=== PATIENT | male | born 1965 | race Two or more races ===

== ENCOUNTER 2018-12-12 06:42 | Day surgery (SDC) | payer MEDICAID ==
[2018-12-08 12:29] LABS: BASOPHILS % (AUTO) 0.5 % (0-1); EOSINOPHILS # (AUTO) 0.2 X10'3 (0-0.9); EOSINOPHILS % (AUTO) 2.8 % (0-6); LYMPHOCYTES # (AUTO) 2.5 X10'3 (1.1-4.8); LYMPHOCYTES % (AUTO) 29.2 % (21-51); MEAN CORPUSCULAR HEMOGLOBIN 27.7 PG (27.0-31.0); MEAN CORPUSCULAR VOLUME 83.9 FL (78-98); MONOCYTES # (AUTO) 0.7 X10'3 (0-0.9); MONOCYTES % (AUTO) 7.8 % (2-12); NEUTROPHILS # (AUTO) 5.1 X10'3 (1.8-7.7); NEUTROPHILS % (AUTO) 59.7 % (42-75); PRE OP HEMATOCRIT 38.8 % (42.0-52.0); PRE OP HEMOGLOBIN 12.8 g/dL (14.0-17.9); PRE OP PLATELET COUNT 265 X10'3 (140-440); RED BLOOD COUNT 4.63 X10'6 (4.70-6.10); RED CELL DISTRIBUTION WIDTH 14.1 % (11.5-14.5)
[2018-12-08 12:43] LABS: ALBUMIN 4.1 G/DL (3.4-5.0); ALBUMIN/GLOBULIN RATIO 1.1 (1.1-1.5); ALKALINE PHOSPHATASE 76 IU/L (46-116); BLOOD UREA NITROGEN 17 MG/DL (7-18); CALCIUM 9.2 MG/DL (8.5-10.1); CHLORIDE 104 MMOL/L (99-107); PRE OP ALT 23 U/L (30-65); PRE OP ANION GAP 10 (8-16); PRE OP AST 13 U/L (10-37); PRE OP BILIRUB, TOTAL 0.6 MG/DL (0.0-1.0); PRE OP GLUCOSE 80 MG/DL (70-104); PRE OP POTASSIUM 4.1 MMOL/L (3.4-5.1); PRE OP SODIUM 142 MMOL/L (135-145); TOTAL CARBON DIOXIDE 28.1 MMOL/L (24-32); TOTAL PROTEIN 7.8 G/DL (6.4-8.2); eGFR 78 ML/MIN
[~2018-12-12] VITALS: Ht 170.2 cm; Wt 89.7 kg
[~2018-12-12 06:42] MED LIST: ESOM40CA49 PO; LISI-600 PO; OXYC-658 PO; TRAZ150T78 PO; cefazolin/dext.iso 2gm/100 ML IV ONE; famotidine 20mg tablet PO ONE; normal saline 1000ml 1,000 ML IV SCH; ringers solution, lacted 1,000 ML IV SCH
[2018-12-12 06:50] VITALS: BP 139/84
[2018-12-12] MEDS ORDERED: ringers solution, lacted 1,000 ML IV SCH (07:33)
[2018-12-12] MEDS ORDERED: hydrALAZINE 20mg/ml inj. IV PRN (07:35)
[2018-12-12] MEDS ORDERED: ondansetron/PF 4mg/2ml inj IV PRN (07:35)
[2018-12-12] MEDS ORDERED: fentaNYL/PF 50MCG/1 ML 2ML syringe IV PRN ×2 (07:35)
[2018-12-12] MEDS ORDERED: morphine 4 MG/ML inj SYRINge IV PRN ×2 (07:35)
[2018-12-12] MEDS ORDERED: labetalol 20mg/4ml (5mg/ml) syringe IV PRN (07:35)
[2018-12-12] MEDS ORDERED: LIDOcaine 0.5% (5mg/ml) 50ml vial ONE (07:36)
[2018-12-12] MEDS ORDERED: BUPIVAcaine/PF 2.5mg/ml (0.25%) 10ml vial ONE (10:21)
[2018-12-12] MEDS ORDERED: midazolam 2 mg/2 ml injection ONE (10:30)
[2018-12-12] MEDS ORDERED: fentaNYL/PF 50MCG/1 ML 2ML syringe ONE (10:30)
[2018-12-12 11:04] VITALS: BP 123/55
--- NOTE | 2018-12-12 11:04 | NUR ---
Received from OR via , accompanied by Anesthesiologist BELLA and report given by Anesthesiolgist. AWAKE VS WNL, NO CO PAIN DSG DI, FINGERS WARM PINK GOOD CAP REFILL. ELEVATED WITH ICE TO WRIST AREA.
[2018-12-12 11:14] VITALS: BP 126/61
[2018-12-12 11:24] VITALS: BP 128/59
[2018-12-12 11:34] VITALS: BP 124/63
[2018-12-12 11:44] VITALS: BP 129/64
--- NOTE | 2018-12-12 11:54 | NUR ---
AWAKE VS WNL, NO CO PAIN TOLERATES LIQUIDS, DSG DI, FINGERS WARM PINK GOOD CAP REFILL. DISCH INSTR GIVEN TO PT AND UNDERSTOOD. ICE TO WRIST HOME WITH .
== END 2018-12-12 11:54 | disposition home or self-care (01) ==
LOC: PAS 06:42
PROVIDERS: ATTEND Orthopaedic Surgery Hand Surgery
DX: G56.02 Carpal tunnel syndrome, left upper limb (principal); D23.62 Other benign neoplasm of skin of left upper limb, including shoulder; I10 Essential (primary) hypertension; K21.9 Gastro-esophageal reflux disease without esophagitis; G89.29 Other chronic pain; Z87.891 Personal history of nicotine dependence; Z79.899 Other long term (current) drug therapy; Z98.890 Other specified postprocedural states
CPT/HCPCS: 26115; 36415; 64721; 80053; 85025; 93005; J2001; J2250; J3010; J3490; J7030; A4215; J7120

== ENCOUNTER 2020-08-08 08:01 | Inpatient (IN) | payer MEDICAID ==
[~2020-08-08] VITALS: Ht 170.2 cm; Wt 88.6 kg
[~2020-08-08 08:01] MED LIST changes: -LISI-600 PO; +LISI20TA28 PO; -cefazolin/dext.iso 2gm/100 ML IV ONE; -famotidine 20mg tablet PO ONE; -normal saline 1000ml 1,000 ML IV SCH; -ringers solution, lacted 1,000 ML IV SCH
[2020-08-08 08:51] LABS: CLARITY,URINE CLOUDY (Clear); COLOR,URINE YELLOW (Yellow); GLUCOSE, URINE NEGATIVE (Neg); KETONES,URINE TRACE mg/dl (Neg); LEUKOCYTE ESTERASE ,URINE NEGATIVE (Neg); NITRITES, URINE NEGATIVE (Neg); OCCULT BLOOD,URINE MODERATE (Neg); PH,URINE 7.5 (4.8-8.0); PROTEIN,URINE >=300 mg/dl (Neg)
[2020-08-08 08:52] LABS: UA COLLECTION TYPE CLN CATCH MIDSTREAM
[2020-08-08 08:59] LABS: MUCUS STRANDS MODERATE /LPF (Neg); SQUAMOUS EPITHELIAL CELL,UR FEW /LPF (FEW)
[2020-08-08 09:00] LABS: BACTERIA,URINE 1+ /HPF (Neg); CELLULAR CAST 0-4 /LPF (NEGATIVE)
[2020-08-08] MEDS ORDERED: pantoprazole 40 MG vial IV ONE ×2 (09:00→12:15)
[2020-08-08] MEDS ORDERED: normal saline 1000ml 1,000 ML IV ONE (09:00)
[2020-08-08] MEDS ORDERED: famotidine/PF 10 mg/ml inj IV ONE (09:00)
[2020-08-08 09:07] LABS: BASOPHILS % (AUTO) 0.1 % (0-1); EOSINOPHILS % (AUTO) 0 % (0-6); HEMATOCRIT 40.6 % (42.0-52.0); HEMOGLOBIN 13.6 g/dl (14.0-17.9); LYMPHOCYTES # (AUTO) 0.5 X10'3 (1.1-4.8); LYMPHOCYTES % (AUTO) 3.1 % (21-51); MEAN CORPUSCULAR HEMOGLOBIN 30.5 PG (27.0-31.0); MEAN CORPUSCULAR HGB CONC 33.6 g/dL (33.0-36.5); MEAN CORPUSCULAR VOLUME 90.7 FL (78-98); MEAN PLATELET VOLUME 8.7 FL (7.4-10.4); MONOCYTES # (AUTO) 0.9 X10'3 (0-0.9); MONOCYTES % (AUTO) 5.8 % (2-12); NEUTROPHILS # (AUTO) 14.1 X10'3 (1.8-7.7); PLATELET COUNT 289 X10'3 (140-440); RED BLOOD COUNT 4.48 X10'6 (4.70-6.10); RED CELL DISTRIBUTION WIDTH 15.2 % (11.5-14.5); WHITE BLOOD COUNT 15.5 X10'3 (4.5-11.0)
[2020-08-08] MEDS ORDERED: morphine 4 MG/ML inj SYRINge IV ONE (09:15)
[2020-08-08] MEDS ORDERED: ondansetron/PF 4mg/2ml inj IV ONE (09:15)
[2020-08-08] MEDS ORDERED: normal saline 1000ML IV soln IV ONE (09:20)
[2020-08-08] MEDS ORDERED: iohexol 300mg/ml 100ml inj. ONE (10:15)
[2020-08-08 10:17] LABS: ALANINE AMINOTRANSFERASE 130 U/L (12-78); ALBUMIN 4.1 G/DL (3.4-5.0); ALKALINE PHOSPHATASE 93 IU/L (46-116); ANION GAP 11 (8-16); ASPARTATE AMINO TRANSFERASE 85 U/L (10-37); BILIRUBIN,TOTAL 1.3 MG/DL (0.1-1.0); BLOOD UREA NITROGEN 23 MG/DL (7-18); BUN/CREATININE RATIO 19.5 (5.4-32.0); CALCIUM 9.1 MG/DL (8.5-10.1); CHLORIDE 97 MMOL/L (99-107); CREATININE 1.18 MG/DL (0.60-1.10); GLUCOSE 152 MG/DL (70-104); LIPASE 3587 U/L (73-393); POTASSIUM 3.5 MMOL/L (3.5-5.1); SODIUM 138 MMOL/L (135-145); TOTAL CARBON DIOXIDE 29.9 MMOL/L (24-32); TOTAL PROTEIN 8.2 G/DL (6.4-8.2); eGFR 64 ML/MIN
[2020-08-08] MEDS ORDERED: CefTRIAXone 2gm/D5W 50ml BAG 50 ML IV ONE (10:30)
[2020-08-08 10:35] LABS: PARTIAL THROMBOPLASTIN TIME 29 SECONDS (22-32)
--- NOTE | 2020-08-08 10:58 | NUR ---
[place] informed of no pain relief with 4 mg dose of morphine, last etoh 3 days ago
[2020-08-08] MEDS ORDERED: HYDROmorphone 1 mg/ml syringe IV ONE (11:00)
[2020-08-08 11:42] LABS: TOTAL CELLS COUNTED 100
[2020-08-08 11:43] LABS: PLATELET ESTIMATE NORMAL
[2020-08-08] MEDS ORDERED: metoclopramide 5 mg/ml inj IV PRN (12:45)
[2020-08-08] MEDS ORDERED: magnesium 4gm in 100ml NS 100 ML IV PRN (12:45)
[2020-08-08] MEDS ORDERED: magnesium hydroxide 30ml (MOM) UD suspension PO PRN (12:45)
[2020-08-08] MEDS ORDERED: HYDROmorphone inj. 0.5 MG/0.5 ML DISP.SYRIN IV PRN (12:45)
[2020-08-08] MEDS ORDERED: ondansetron/PF 4mg/2ml inj IV PRN (12:45)
[2020-08-08] MEDS ORDERED: acetaminophen 325mg tablet PO PRN ×2 (12:45)
[2020-08-08] MEDS ORDERED: magnesium Cl slow-release 64mg tablet PO PRN (12:45)
[2020-08-08] MEDS ORDERED: HYDROcodone/acetaminophen 5mg/325mg tablet PO PRN (12:45)
[2020-08-08] MEDS ORDERED: potassium Cl 20 mEq SR tablet PO PRN ×2 (12:45)
[2020-08-08] MEDS ORDERED: HYDROcodone/acetaminophen 10/325mg tab PO PRN (12:45)
[2020-08-08] MEDS ORDERED: magnesium 2GM in 50ml NS 50 ML IV PRN (12:45)
[2020-08-08] MEDS ORDERED: haloperidol lactate 5mg/ml inj IM PRN (12:45)
[2020-08-08] MEDS ORDERED: haloperidol 5mg tablet PO PRN (12:45)
[2020-08-08] MEDS ORDERED: bisacodyl 10mg suppository rectal RC PRN (12:45)
[2020-08-08] MEDS: normal saline 1000ml 1,000 ML IV SCH (12:45)
[2020-08-08] MEDS ORDERED: thiamine inj. 100 MG in normal saline 100ml IV soln 100 ML IV ONE (12:45)
[2020-08-08] MEDS ORDERED: potassium Cl 40MEQ/1/2NS 520ml 520 ML IV PRN ×2 (12:45)
[2020-08-08] MEDS ORDERED: mag hydrox/Alum hydrox/simeth 30ml oral suspension PO PRN (12:45)
[2020-08-08] MEDS ORDERED: ESOM20CA38 PO (13:23)
[2020-08-08] MEDS ORDERED: TRAZ-256 PO (13:23)
[2020-08-08] MEDS ORDERED: LATA2.5D14 RIGHTEYE (13:23)
[2020-08-08] MEDS ORDERED: LISI40TA13 PO (13:23)
[2020-08-08] MEDS ORDERED: OXYC10TA47 PO (13:23)
[2020-08-08] MEDS ORDERED: GABA300C PO (13:23)
[2020-08-08] MEDS ORDERED: AMLO5TAB16 PO (13:23)
[2020-08-08] MEDS ORDERED: SIMV-42 PO (13:23)
[2020-08-08] MEDS: pantoprazole 40MG/NS 100ML BAG 100 ML IV SCH ×3 (13:30→21:00)
[2020-08-08] MEDS: LORazepam 1 MG tablet PO PRN ×2 (13:31→16:07)
[2020-08-08 14:30] LABS: HEMATOCRIT 39.7 % (42.0-52.0); HEMOGLOBIN 13.1 g/dl (14.0-17.9); MEAN CORPUSCULAR HEMOGLOBIN 30.3 PG (27.0-31.0); MEAN CORPUSCULAR HGB CONC 32.9 g/dL (33.0-36.5); MEAN CORPUSCULAR VOLUME 92.1 FL (78-98); MEAN PLATELET VOLUME 8.8 FL (7.4-10.4); PLATELET COUNT 247 X10'3 (140-440); RED BLOOD COUNT 4.31 X10'6 (4.70-6.10); RED CELL DISTRIBUTION WIDTH 15.1 % (11.5-14.5)
--- NOTE | 2020-08-08 14:52 | NUR ---
PHONE REPORT TO AMY FORTE PCU. PATIENT TO GO TO ROOM 3029Q ON MONITOR WITH RN TAMMI WOMACK RN AWARE IV THIAMINE HAS NOT ARRIVED TO BE ADMINISTERED DESPITE MULTIPLE PHONE CALLS TO PHARMACY.
--- NOTE | 2020-08-08 15:50 | NUR ---
CALLED PHARMACY TO LET THEM KNOW I NEEDED A PROTONICS DRIP WAS TOLD IT WAS ON ITS WAY.
[2020-08-08] MEDS ORDERED: pantoprazole 40MG/NS 100ML BAG 100 ML IV SCH (16:00)
[2020-08-08 16:35] VITALS: BP 171/115
--- NOTE | 2020-08-08 17:00 | NUR ---
CALLED PHARMACY AGAIN ABOUT PROTONIX DRIP. WAS TOLD IT WOULD BE UP SHORTLY
--- NOTE | 2020-08-08 17:55 | NUR ---
CALLED ABOUT THE PROTONIX DRIP AGAIN. I EXPRESSED THAT I HAVE BEEN WAITING FOR OVER TWO HOURS FOR THE PROTONIX DRIP AND STILL HAVE NOT RECEIVED IT. WAS TOLD AGAIN THAT IT WOULD BE UP SOON. NOTIFIED MY CHARGE NURSE NEFTALI REYES
[2020-08-08 18:00] VITALS: BP 153/93
[2020-08-08] MEDS ORDERED: gabapentin 300mg capsule PO PRN (18:15)
--- NOTE | 2020-08-08 18:28 | NUR ---
Patient in room PCU 3025. I have received report from AMY Gold and had the opportunity to ask questions and assume patient care.
[2020-08-08] MEDS: LORazepam 2 mg/ml vial IV PRN (19:33)
[2020-08-08] MEDS: K and/or MAG REPLACEMENT MC SCH (19:37)
[2020-08-08] MEDS: traZODone 50mg tablet PO SCH (20:14)
[2020-08-08] MEDS: lisinopril 20mg tablet PO SCH (20:26)
[2020-08-08 20:36] LABS: HEMATOCRIT 38.3 % (42.0-52.0); HEMOGLOBIN 12.8 g/dl (14.0-17.9); MEAN CORPUSCULAR HEMOGLOBIN 30.5 PG (27.0-31.0); MEAN CORPUSCULAR HGB CONC 33.4 g/dL (33.0-36.5); MEAN CORPUSCULAR VOLUME 91.3 FL (78-98); MEAN PLATELET VOLUME 8.7 FL (7.4-10.4); PLATELET COUNT 240 X10'3 (140-440); RED BLOOD COUNT 4.19 X10'6 (4.70-6.10); RED CELL DISTRIBUTION WIDTH 14.9 % (11.5-14.5); WHITE BLOOD COUNT 14.1 X10'3 (4.5-11.0)
[2020-08-08] MEDS ORDERED: temazepam 15mg capsule PO PRN (21:00)
[2020-08-08] MEDS: latanoprost 0.005% 2.5ml ophthalmic drops RIGHTEYE SCH (21:00)
[2020-08-08 22:00] VITALS: BP 153/102
[2020-08-09] MEDS: pantoprazole 40MG/NS 100ML BAG 100 ML IV SCH ×5 (00:33→20:37)
[2020-08-09 02:00] VITALS: BP 151/102
[2020-08-09] MEDS: LORazepam 2 mg/ml vial IV PRN ×2 (02:32→13:52)
[2020-08-09 03:50] LABS: ANION GAP 10 (8-16); BLOOD UREA NITROGEN 16 MG/DL (7-18); CALCIUM 8.6 MG/DL (8.5-10.1); CHLORIDE 103 MMOL/L (99-107); CHOL/HDL RATIO 2.7 (0.00-4.99); CHOLESTEROL 166 MG/DL (0-200); GLUCOSE 111 MG/DL (70-104); HDL CHOLESTEROL 62 MG/DL (35-60); LDL CHOLESTEROL 76 MG/DL (50-100); POTASSIUM 3.6 MMOL/L (3.5-5.1); SODIUM 138 MMOL/L (135-145); TOTAL CARBON DIOXIDE 25.2 MMOL/L (24-32); TRIGLYCERIDES 88 MG/DL (20-135); eGFR > 90 ML/MIN
[2020-08-09 04:25] LABS: HEMATOCRIT 38.1 % (42.0-52.0); HEMOGLOBIN 12.6 g/dl (14.0-17.9); MEAN CORPUSCULAR HEMOGLOBIN 30.4 PG (27.0-31.0); MEAN CORPUSCULAR VOLUME 91.9 FL (78-98); MEAN PLATELET VOLUME 8.7 FL (7.4-10.4); PLATELET COUNT 216 X10'3 (140-440); RED BLOOD COUNT 4.14 X10'6 (4.70-6.10); RED CELL DISTRIBUTION WIDTH 15.3 % (11.5-14.5); WHITE BLOOD COUNT 13.8 X10'3 (4.5-11.0)
--- NOTE | 2020-08-09 06:14 | NUR ---
Problems reprioritized. Patient report given,AMY Whaley questions answered & plan of care reviewed with .
--- NOTE | 2020-08-09 06:16 | NUR ---
[place]rientee documentation: I have reviewed and agree with all medications administered, interventions, assessments performed and documented by Ed REYES .
--- NOTE | 2020-08-09 06:20 | NUR ---
Patient in room PCU 3025. I have received report from Ed REYES and Anabel REYES and had the opportunity to ask questions and assume patient care.
[2020-08-09 07:00] VITALS: BP 161/106
[2020-08-09] MEDS: K and/or MAG REPLACEMENT MC SCH ×2 (08:00→20:00)
[2020-08-09] MEDS: amLODIPine 5mg tablet PO SCH (08:16)
[2020-08-09] MEDS: thiamine 100mg tablet PO SCH (08:16)
[2020-08-09] MEDS: multivitamins, therapeutics tablet PO SCH (08:16)
[2020-08-09] MEDS: oxyCODONE IR 5mg (immed. release) tablet PO PRN ×2 (08:17→18:48)
[2020-08-09] MEDS: folic acid 1mg tablet PO SCH (08:17)
[2020-08-09] MEDS ORDERED: CefTRIAXone 2gm/D5W 50ml BAG 50 ML IV ONE (10:10)
[2020-08-09 10:28] LABS: HEMATOCRIT 37.8 % (42.0-52.0); HEMOGLOBIN 12.5 g/dl (14.0-17.9); MEAN CORPUSCULAR HEMOGLOBIN 30.6 PG (27.0-31.0); MEAN CORPUSCULAR HGB CONC 33.1 g/dL (33.0-36.5); MEAN CORPUSCULAR VOLUME 92.4 FL (78-98); MEAN PLATELET VOLUME 9.1 FL (7.4-10.4); PLATELET COUNT 234 X10'3 (140-440); RED BLOOD COUNT 4.09 X10'6 (4.70-6.10); RED CELL DISTRIBUTION WIDTH 15.5 % (11.5-14.5); WHITE BLOOD COUNT 14.2 X10'3 (4.5-11.0)
[2020-08-09 11:00] VITALS: BP 161/102
[2020-08-09 14:38] LABS: HEMATOCRIT 36.7 % (42.0-52.0); HEMOGLOBIN 12.2 g/dl (14.0-17.9); MEAN CORPUSCULAR HEMOGLOBIN 30.5 PG (27.0-31.0); MEAN CORPUSCULAR HGB CONC 33.1 g/dL (33.0-36.5); MEAN CORPUSCULAR VOLUME 92.2 FL (78-98); MEAN PLATELET VOLUME 9.1 FL (7.4-10.4); PLATELET COUNT 216 X10'3 (140-440); RED BLOOD COUNT 3.98 X10'6 (4.70-6.10); RED CELL DISTRIBUTION WIDTH 15.4 % (11.5-14.5); WHITE BLOOD COUNT 13.2 X10'3 (4.5-11.0)
[2020-08-09 15:00] VITALS: BP 158/102
--- NOTE | 2020-08-09 18:27 | NUR ---
Problems reprioritized. Patient report given, questions answered & plan of care reviewed with Selin REYES.
[2020-08-09 20:07] LABS: HEMATOCRIT 37.3 % (42.0-52.0); HEMOGLOBIN 12.3 g/dl (14.0-17.9); MEAN CORPUSCULAR HEMOGLOBIN 30.4 PG (27.0-31.0); MEAN PLATELET VOLUME 8.7 FL (7.4-10.4); PLATELET COUNT 227 X10'3 (140-440); RED BLOOD COUNT 4.06 X10'6 (4.70-6.10); RED CELL DISTRIBUTION WIDTH 15.1 % (11.5-14.5); WHITE BLOOD COUNT 12.9 X10'3 (4.5-11.0)
[2020-08-09] MEDS: lisinopril 20mg tablet PO SCH (20:36)
[2020-08-09] MEDS: traZODone 50mg tablet PO SCH (20:36)
[2020-08-09] MEDS: latanoprost 0.005% 2.5ml ophthalmic drops RIGHTEYE SCH (20:36)
[2020-08-09 22:00] VITALS: BP 165/105
[2020-08-10 02:00] VITALS: BP 158/107
[2020-08-10] MEDS: pantoprazole 40MG/NS 100ML BAG 100 ML IV SCH ×5 (02:02→20:07)
[2020-08-10] MEDS: oxyCODONE IR 5mg (immed. release) tablet PO PRN ×3 (02:42→20:37)
[2020-08-10 06:00] VITALS: BP 165/107
--- NOTE | 2020-08-10 06:20 | NUR ---
Patient in room PCU 3025. I have received report from Selin REYES and had the opportunity to ask questions and assume patient care.
--- NOTE | 2020-08-10 06:59 | NUR ---
Patient in room PCU 3025. I have received report from Selin REYES and had the opportunity to ask questions and assume patient care.
[2020-08-10 07:29] LABS: HEMATOCRIT 34.8 % (42.0-52.0); HEMOGLOBIN 11.4 g/dl (14.0-17.9); MEAN CORPUSCULAR HEMOGLOBIN 30.3 PG (27.0-31.0); MEAN CORPUSCULAR HGB CONC 32.8 g/dL (33.0-36.5); MEAN CORPUSCULAR VOLUME 92.1 FL (78-98); MEAN PLATELET VOLUME 9.1 FL (7.4-10.4); PLATELET COUNT 232 X10'3 (140-440); RED BLOOD COUNT 3.77 X10'6 (4.70-6.10); WHITE BLOOD COUNT 13.6 X10'3 (4.5-11.0)
[2020-08-10 07:39] LABS: ALBUMIN 2.5 G/DL (3.4-5.0); ANION GAP 13 (8-16); BLOOD UREA NITROGEN 20 MG/DL (7-18); CALCIUM 8.6 MG/DL (8.5-10.1); CHLORIDE 103 MMOL/L (99-107); CREATININE 0.74 MG/DL (0.60-1.10); GLUCOSE 91 MG/DL (70-104); MAGNESIUM 2.2 MG/DL (1.5-2.4); POTASSIUM 3.5 MMOL/L (3.5-5.1); SODIUM 138 MMOL/L (135-145); TOTAL CARBON DIOXIDE 22.5 MMOL/L (24-32); eGFR > 90 ML/MIN
[2020-08-10] MEDS: K and/or MAG REPLACEMENT MC SCH ×2 (08:00→20:00)
[2020-08-10] MEDS: multivitamins, therapeutics tablet PO SCH (08:04)
[2020-08-10] MEDS: LORazepam 1 MG tablet PO PRN ×3 (08:04→22:18)
[2020-08-10] MEDS: folic acid 1mg tablet PO SCH (08:05)
[2020-08-10] MEDS: amLODIPine 5mg tablet PO SCH (08:05)
[2020-08-10] MEDS: thiamine 100mg tablet PO SCH (08:05)
[2020-08-10 08:17] LABS: HEMATOCRIT 35.5 % (42.0-52.0); HEMOGLOBIN 11.9 g/dl (14.0-17.9); MEAN CORPUSCULAR HEMOGLOBIN 30.9 PG (27.0-31.0); MEAN CORPUSCULAR HGB CONC 33.5 g/dL (33.0-36.5); MEAN CORPUSCULAR VOLUME 92.2 FL (78-98); MEAN PLATELET VOLUME 8.7 FL (7.4-10.4); PLATELET COUNT 234 X10'3 (140-440); RED BLOOD COUNT 3.85 X10'6 (4.70-6.10); WHITE BLOOD COUNT 12.4 X10'3 (4.5-11.0)
[2020-08-10] MEDS ORDERED: amLODIPine 5mg tablet PO ONE (09:55)
[2020-08-10 09:57] LABS: ALANINE AMINOTRANSFERASE 82 U/L (12-78); ALBUMIN/GLOBULIN RATIO 0.6 (1.1-1.5); ALKALINE PHOSPHATASE 108 IU/L (46-116); ASPARTATE AMINO TRANSFERASE 62 U/L (10-37); BILIRUBIN,DIRECT 0.3 MG/DL (0-0.3); BILIRUBIN,TOTAL 0.9 MG/DL (0.1-1.0); TOTAL PROTEIN 6.6 G/DL (6.4-8.2)
[2020-08-10] MEDS: hyDRALAzine 10mg tablet PO PRN ×2 (10:43→17:16)
[2020-08-10 11:00] VITALS: BP 179/110
[2020-08-10] MEDS: normal saline 1000ml 1,000 ML IV SCH (12:45)
[2020-08-10 16:01] LABS: LIPASE 207 U/L (73-393)
[2020-08-10 16:33] VITALS: BP 160/109
--- NOTE | 2020-08-10 16:43 | NUR ---
Contacted Hillary in Pharm for dose delivery of rocephin. awaiting delivery, will admin on arrival
[2020-08-10] MEDS: CefTRIAXone 2gm/D5W 50ml BAG 50 ML IV SCH (17:12)
[2020-08-10 18:00] VITALS: BP 165/109
--- NOTE | 2020-08-10 18:01 | NUR ---
[place]ee documentation: I have reviewed and agree with all interventions, assessments performed and documented by Marcela REYES. [place] Medication Administration: For this medication-pass time frame, all medication were reviewed, dispensed, administered and documented per hospital policy by MARCELA REYES.
--- NOTE | 2020-08-10 18:28 | NUR ---
Problems reprioritized. Patient report given, questions answered & plan of care reviewed with adry oro.
--- NOTE | 2020-08-10 18:30 | NUR ---
Problems reprioritized. Patient report given, questions answered & plan of care reviewed with Selin REYES.
[2020-08-10] MEDS: lisinopril 20mg tablet PO SCH (20:06)
[2020-08-10] MEDS: traZODone 50mg tablet PO SCH (20:06)
[2020-08-10] MEDS: latanoprost 0.005% 2.5ml ophthalmic drops RIGHTEYE SCH (20:35)
[2020-08-10 22:00] VITALS: BP 157/99
[2020-08-11 02:33] VITALS: BP 166/102
[2020-08-11] MEDS: pantoprazole 40MG/NS 100ML BAG 100 ML IV SCH ×2 (03:14→08:44)
[2020-08-11] MEDS: hyDRALAzine 10mg tablet PO PRN (04:52)
[2020-08-11] MEDS: LORazepam 1 MG tablet PO PRN ×2 (04:52→08:39)
[2020-08-11 05:01] VITALS: BP 166/109
[2020-08-11 06:58] LABS: ALBUMIN 2.5 G/DL (3.4-5.0); ANION GAP 12 (8-16); BLOOD UREA NITROGEN 13 MG/DL (7-18); BUN/CREATININE RATIO 18.8 (5.4-32.0); CALCIUM 8.7 MG/DL (8.5-10.1); CHLORIDE 103 MMOL/L (99-107); CREATININE 0.69 MG/DL (0.60-1.10); GLUCOSE 117 MG/DL (70-104); POTASSIUM 3.2 MMOL/L (3.5-5.1); SODIUM 138 MMOL/L (135-145); eGFR > 90 ML/MIN
[2020-08-11 07:00] VITALS: BP 165/101
[2020-08-11] MEDS: K and/or MAG REPLACEMENT MC SCH (08:00)
[2020-08-11] MEDS ORDERED: amLODIPine 5mg tablet PO SCH (08:00)
[2020-08-11] MEDS: CefTRIAXone 2gm/D5W 50ml BAG 50 ML IV SCH (08:37)
[2020-08-11] MEDS: multivitamins, therapeutics tablet PO SCH (08:38)
[2020-08-11] MEDS: thiamine 100mg tablet PO SCH (08:38)
[2020-08-11] MEDS: folic acid 1mg tablet PO SCH (08:38)
[2020-08-11] MEDS: oxyCODONE IR 5mg (immed. release) tablet PO PRN (08:39)
[2020-08-11 10:03] LABS: BASOPHILS % (AUTO) 0.3 % (0-1); EOSINOPHILS # (AUTO) 0.1 X10'3 (0-0.9); EOSINOPHILS % (AUTO) 0.9 % (0-6); HEMATOCRIT 37.3 % (42.0-52.0); HEMOGLOBIN 12.5 g/dl (14.0-17.9); LYMPHOCYTES # (AUTO) 0.9 X10'3 (1.1-4.8); LYMPHOCYTES % (AUTO) 7.3 % (21-51); MEAN CORPUSCULAR HEMOGLOBIN 30.5 PG (27.0-31.0); MEAN CORPUSCULAR HGB CONC 33.5 g/dL (33.0-36.5); MEAN CORPUSCULAR VOLUME 91.1 FL (78-98); MEAN PLATELET VOLUME 8.3 FL (7.4-10.4); MONOCYTES # (AUTO) 1.2 X10'3 (0-0.9); MONOCYTES % (AUTO) 9.9 % (2-12); NEUTROPHILS # (AUTO) 9.6 X10'3 (1.8-7.7); NEUTROPHILS % (AUTO) 81.6 % (42-75); PLATELET COUNT 306 X10'3 (140-440); RED BLOOD COUNT 4.09 X10'6 (4.70-6.10); RED CELL DISTRIBUTION WIDTH 14.6 % (11.5-14.5); WHITE BLOOD COUNT 11.8 X10'3 (4.5-11.0)
[2020-08-11] MEDS ORDERED: folic acid tablet PO (10:03)
[2020-08-11] MEDS ORDERED: ATEN-27 PO (10:03)
[2020-08-11] MEDS ORDERED: ESOM20CA38 PO (10:03)
[2020-08-11] MEDS ORDERED: MULT-25 PO (10:03)
[2020-08-11] MEDS ORDERED: thiamine tablet PO (10:03)
[2020-08-11] MEDS ORDERED: NOR5T PO (10:03)
[2020-08-11 11:00] VITALS: BP 145/101
[2020-08-11 11:45] LABS: OCCULT BLOOD STOOL POSITIVE (Neg)
--- NOTE | 2020-08-11 12:21 | NUR ---
RXs called into [facility] pharmacy at [phone]
[2020-08-11] MEDS ORDERED: CIPR-259 PO (12:36)
--- NOTE | 2020-08-11 13:36 | NUR ---
Patient is dc to home and was picked up by . PIV was removed with cannula intact. RX were called into [facility]. DC instructions and warning s/s were reviewed with patient and he verbalized understanding. Dc written instructions were sent home with the patient. Patient was alert, oriented, and appropriate at the time of DC.
== END 2020-08-11 13:00 | disposition home or self-care (01) | DRG 282 ==
LOC: ER 08:02 → ED HOLD 12:45 → PCU 3S 15:50
PROVIDERS: ADMIT Family Medicine; ATTEND Family Medicine
PROC: BW211ZZ Computerized Tomography (CT Scan) of Abdomen and Pelvis using Low Osmolar Contrast (ICD-10-PCS; principal; 2020-08-08)
DX: K85.20 Alcohol induced acute pancreatitis without necrosis or infection (principal); N17.9 Acute kidney failure, unspecified; I10 Essential (primary) hypertension; M54.9 Dorsalgia, unspecified; G89.29 Other chronic pain; K21.9 Gastro-esophageal reflux disease without esophagitis; R09.89 Other specified symptoms and signs involving the circulatory and respiratory systems; R74.01 Elevation of levels of liver transaminase levels; E78.5 Hyperlipidemia, unspecified; F10.20 Alcohol dependence, uncomplicated; Z80.0 Family history of malignant neoplasm of digestive organs; Z80.42 Family history of malignant neoplasm of prostate; Z87.19 Personal history of other diseases of the digestive system; Z79.899 Other long term (current) drug therapy
CPT/HCPCS: 36415; 71045; 74177; 80048; 80053; 80061; 80076; 81001; 82272; 82948; 83605; 83690; 83735; 84145; 85007; 85025; 85027; 85610; 85730; 87040; 87081; 87088; 96361; 96365; 96375; 99285; C9113; G0378; J0696; J1170; J1630; J2060; J2270; J2405; J3411; J3490; J7030; Q9967

== ENCOUNTER 2020-10-04 13:30 | Emergency (ER) | payer MEDICAID ==
[~2020-10-04 13:30] MED LIST changes: +ATEN-27 PO; +ESOM20CA38 PO; -ESOM40CA49 PO; +GABA300C PO; +LATA2.5D14 RIGHTEYE; -LISI20TA28 PO; +LISI40TA13 PO; +MULT-25 PO; +NOR5T PO; -OXYC-658 PO; +OXYC10TA47 PO; +SIMV-42 PO; +TRAZ-256 PO; -TRAZ150T78 PO; +folic acid tablet PO; +thiamine tablet PO
== END 2020-10-04 14:30 | disposition left against medical advice (07) ==
LOC: ER 13:34
DX: R10.9 Unspecified abdominal pain (principal); Z53.21 Procedure and treatment not carried out due to patient leaving prior to being seen by health care provider

== ENCOUNTER 2024-01-27 14:38 | Outpatient (CLI) | payer MEDICAID ==
[~2024-01-27 14:38] MED LIST changes: -ESOM20CA38 PO; +ESOM20CA50 PO; +barium sulfate 340gm for oral suspension 1 BOTTLE SUSP.RECON PO ONE
== END 2024-01-27 23:59 | disposition home or self-care (01) ==
LOC: RAD 14:38
PROVIDERS: ATTEND Surgery
DX: K21.9 Gastro-esophageal reflux disease without esophagitis (principal); K44.9 Diaphragmatic hernia without obstruction or gangrene
CPT/HCPCS: 74220

== ENCOUNTER 2024-02-01 06:26 | Day surgery (SDC) | payer MEDICAID ==
[~2024-02-01] VITALS: Ht 170.2 cm; Wt 84.1 kg
[2024-02-01] VITALS (7 sets, daily range): BP systolic 90–124; BP diastolic 66–92; PULSE 65–70; RESP 13–17; O2SAT 95–97
[~2024-02-01 06:26] MED LIST changes: -ATEN-27 PO; -ESOM20CA50 PO; -GABA300C PO; +IBUP-1986 PO; -LATA2.5D14 RIGHTEYE; +METF-438 PO; -MULT-25 PO; -NOR5T PO; +OMEP20TA23 PO; -OXYC10TA47 PO; -SIMV-42 PO; -TRAZ-256 PO; -barium sulfate 340gm for oral suspension 1 BOTTLE SUSP.RECON PO ONE; -folic acid tablet PO; -thiamine tablet PO
[2024-02-01] MEDS ORDERED: LIDOcaine 2% Viscous 15ml cup ONE (07:45)
[2024-02-01] MEDS ORDERED: MIDAZolam 1 MG/ML 5ML VIAL ONE (07:47)
[2024-02-01] MEDS ORDERED: fentaNYL/PF 50MCG/1 ML 2ML syringe ONE (07:47)
[2024-02-01] MEDS ORDERED: simethicone 40mg/0.6ml oral drops 30ml ONE (08:30)
== END 2024-02-01 09:14 | disposition home or self-care (01) ==
LOC: GI LAB 06:26
PROVIDERS: ATTEND Surgery
DX: K44.9 Diaphragmatic hernia without obstruction or gangrene (principal); K21.00 Gastro-esophageal reflux disease with esophagitis, without bleeding; K29.50 Unspecified chronic gastritis without bleeding; I10 Essential (primary) hypertension; E11.9 Type 2 diabetes mellitus without complications; F41.9 Anxiety disorder, unspecified; F32.A Depression, unspecified; Z87.891 Personal history of nicotine dependence; Z79.84 Long term (current) use of oral hypoglycemic drugs; Z79.899 Other long term (current) drug therapy; Z90.49 Acquired absence of other specified parts of digestive tract; Z98.890 Other specified postprocedural states; Z82.49 Family history of ischemic heart disease and other diseases of the circulatory system; Z83.3 Family history of diabetes mellitus; Z80.0 Family history of malignant neoplasm of digestive organs; Z80.42 Family history of malignant neoplasm of prostate
CPT/HCPCS: 43239; 99152; J2250; J3010; J7030; Z7512; A4620

== ENCOUNTER 2024-03-07 14:35 | Outpatient (CLI) | payer MEDICAID ==
[2024-03-07 15:26] LABS: BASOPHILS % (AUTO) 0.5 % (0-1); EOSINOPHILS # (AUTO) 0.2 X10'3 (0-0.9); EOSINOPHILS % (AUTO) 1.7 % (0-6); LYMPHOCYTES # (AUTO) 2.3 X10'3 (1.1-4.8); LYMPHOCYTES % (AUTO) 23.9 % (21-51); MEAN CORPUSCULAR HEMOGLOBIN 27.7 PG (27.0-31.0); MEAN CORPUSCULAR HGB CONC 33.1 g/dL (33.0-36.5); MEAN CORPUSCULAR VOLUME 83.7 FL (78-98); MEAN PLATELET VOLUME 8.7 FL (7.4-10.4); MONOCYTES # (AUTO) 0.6 X10'3 (0-0.9); MONOCYTES % (AUTO) 5.9 % (2-12); NEUTROPHILS # (AUTO) 6.5 X10'3 (1.8-7.7); PRE OP HEMATOCRIT 37.5 % (42.0-52.0); PRE OP HEMOGLOBIN 12.4 g/dL (14.0-17.9); PRE OP PLATELET COUNT 361 X10'3 (140-440); PRE OP WHITE BLOOD COUNT 9.6 10'3 (4.8-10.8); RED BLOOD COUNT 4.48 X10'6 (4.70-6.10); RED CELL DISTRIBUTION WIDTH 13.2 % (11.5-14.5)
[2024-03-07 15:36] LABS: HEMOGLOBIN A1C 9.5 % (4.5-6.2)
[2024-03-07 15:43] LABS: ALKALINE PHOSPHATASE 105 IU/L (46-116); BLOOD UREA NITROGEN 21 MG/DL (7-18); BUN/CREATININE RATIO 19.6 (10.0-20.0); CALCIUM 9.4 MG/DL (8.5-10.1); CHLORIDE 101 MMOL/L (99-107); CREATININE 1.07 MG/DL (0.60-1.10); PRE OP ALT 20 U/L (30-65); PRE OP ANION GAP 8 (8-16); PRE OP AST 10 U/L (10-37); PRE OP BILIRUB, TOTAL 0.5 MG/DL (0.0-1.0); PRE OP GLUCOSE 148 MG/DL (70-104); PRE OP POTASSIUM 4.5 MMOL/L (3.4-5.1); PRE OP SODIUM 137 MMOL/L (135-145); TOTAL PROTEIN 7.9 G/DL (6.4-8.2); eGFR 70 ML/MIN
[2024-03-07] MEDS ORDERED: LANTUS SQ (15:44)
[2024-03-07] MEDS ORDERED: OMEP40CA21 PO (15:44)
== END 2024-03-07 23:59 | disposition home or self-care (01) ==
LOC: LAB 14:35 → EDSTATUS 03-14 07:30
PROVIDERS: ATTEND Surgery
DX: Z01.818 Encounter for other preprocedural examination (principal); K44.9 Diaphragmatic hernia without obstruction or gangrene
CPT/HCPCS: 36415; 80053; 83036; 85025; 87081; 93005

== ENCOUNTER 2024-05-15 15:23 | Emergency (ER) | payer MEDICAID ==
[~2024-05-15] VITALS: Ht 170.2 cm; Wt 81.8 kg
[~2024-05-15 15:23] MED LIST changes: +LANTUS SQ; -OMEP20TA23 PO; +OMEP40CA21 PO
[2024-05-15 15:33] VITALS: TEMP 96.7
[2024-05-15 16:03] LABS: BASOPHILS # (AUTO) 0.1 X10'3 (0-0.2); BASOPHILS % (AUTO) 0.5 % (0-1); EOSINOPHILS # (AUTO) 0.2 X10'3 (0-0.9); EOSINOPHILS % (AUTO) 1.3 % (0-6); HEMATOCRIT 37.6 % (42.0-52.0); LYMPHOCYTES # (AUTO) 2.5 X10'3 (1.1-4.8); LYMPHOCYTES % (AUTO) 19.5 % (21-51); MEAN CORPUSCULAR HEMOGLOBIN 27.5 PG (27.0-31.0); MEAN CORPUSCULAR HGB CONC 31.8 g/dL (33.0-36.5); MEAN CORPUSCULAR VOLUME 86.3 FL (78-98); MEAN PLATELET VOLUME 8.7 FL (7.4-10.4); MONOCYTES # (AUTO) 0.6 X10'3 (0-0.9); NEUTROPHILS # (AUTO) 9.3 X10'3 (1.8-7.7); NEUTROPHILS % (AUTO) 73.7 % (42-75); PLATELET COUNT 363 X10'3 (140-440); RED BLOOD COUNT 4.36 X10'6 (4.70-6.10); RED CELL DISTRIBUTION WIDTH 13.8 % (11.5-14.5); WHITE BLOOD COUNT 12.6 X10'3 (4.5-11.0)
[2024-05-15 16:29] LABS: ALANINE AMINOTRANSFERASE 36 U/L (12-78); ALBUMIN 4.2 G/DL (3.4-5.0); ALKALINE PHOSPHATASE 108 IU/L (46-116); ANION GAP 21 (8-16); ASPARTATE AMINO TRANSFERASE 53 U/L (10-37); BILIRUBIN,TOTAL 0.4 MG/DL (0.1-1.0); BLOOD UREA NITROGEN 41 MG/DL (7-18); BUN/CREATININE RATIO 21.7 (10.0-20.0); CALCIUM 9.1 MG/DL (8.5-10.1); CHLORIDE 101 MMOL/L (99-107); CREATININE 1.89 MG/DL (0.60-1.10); GLUCOSE 61 MG/DL (70-104); LIPASE 17 U/L (16-77); POTASSIUM 5.2 MMOL/L (3.5-5.1); SODIUM 142 MMOL/L (135-145); TOTAL CARBON DIOXIDE 20.1 MMOL/L (24-32); TOTAL PROTEIN 8.3 G/DL (6.4-8.2); eCRCL 39 ML/MIN; eGFR 37 ML/MIN
[2024-05-15] MEDS ORDERED: SEMA1PEN3 SUBCUT (16:57)
[2024-05-15] MEDS ORDERED: DAPA5TAB PO (16:57)
[2024-05-15 17:15] VITALS: BP 136/87; PULSE 88; RESP 16; O2SAT 98
== END 2024-05-15 17:17 | disposition home or self-care (01) ==
LOC: ER 15:24
DX: R10.816 Epigastric abdominal tenderness (principal); E11.649 Type 2 diabetes mellitus with hypoglycemia without coma; I10 Essential (primary) hypertension; K21.9 Gastro-esophageal reflux disease without esophagitis; Z90.49 Acquired absence of other specified parts of digestive tract
CPT/HCPCS: 36415; 80053; 82948; 83690; 85025; 99283

== ENCOUNTER 2024-06-20 08:24 | Inpatient (IN) | payer MEDICAID ==
[2024-06-13 11:16] LABS: BASOPHILS # (AUTO) 0.1 X10'3 (0-0.2); BASOPHILS % (AUTO) 1.2 % (0-1); EOSINOPHILS # (AUTO) 0.2 X10'3 (0-0.9); LYMPHOCYTES # (AUTO) 1.5 X10'3 (1.1-4.8); LYMPHOCYTES % (AUTO) 22.5 % (21-51); MEAN CORPUSCULAR HEMOGLOBIN 28.1 PG (27.0-31.0); MEAN CORPUSCULAR HGB CONC 32.8 g/dL (33.0-36.5); MEAN CORPUSCULAR VOLUME 85.8 FL (78-98); MEAN PLATELET VOLUME 9.1 FL (7.4-10.4); MONOCYTES # (AUTO) 0.4 X10'3 (0-0.9); MONOCYTES % (AUTO) 6.8 % (2-12); NEUTROPHILS # (AUTO) 4.3 X10'3 (1.8-7.7); NEUTROPHILS % (AUTO) 66.5 % (42-75); PRE OP HEMATOCRIT 34.6 % (42.0-52.0); PRE OP HEMOGLOBIN 11.3 g/dL (14.0-17.9); PRE OP PLATELET COUNT 351 X10'3 (140-440); PRE OP WHITE BLOOD COUNT 6.5 10'3 (4.8-10.8); RED BLOOD COUNT 4.03 X10'6 (4.70-6.10)
[2024-06-13 12:15] LABS: ALBUMIN 3.8 G/DL (3.4-5.0); ALBUMIN/GLOBULIN RATIO 1.4 (1.1-1.5); ALKALINE PHOSPHATASE 92 IU/L (46-116); BLOOD UREA NITROGEN 27 MG/DL (7-18); CALCIUM 8.9 MG/DL (8.5-10.1); CHLORIDE 102 MMOL/L (99-107); CREATININE 0.87 MG/DL (0.60-1.10); PRE OP ALT 31 U/L (30-65); PRE OP ANION GAP 8 (8-16); PRE OP AST 15 U/L (10-37); PRE OP BILIRUB, TOTAL 0.4 MG/DL (0.0-1.0); PRE OP GLUCOSE 107 MG/DL (70-104); PRE OP SODIUM 135 MMOL/L (135-145); TOTAL CARBON DIOXIDE 24.9 MMOL/L (24-32); TOTAL PROTEIN 6.6 G/DL (6.4-8.2); eGFR 89 ML/MIN
[2024-06-20] VITALS (18 sets, daily range): BP systolic 118–163; BP diastolic 71–109; PULSE 77–102; RESP 14–29; TEMP 97.8–98.3; O2SAT 93–99
[~2024-06-20] VITALS: Ht 170.2 cm; Wt 83.9 kg
[~2024-06-20 08:24] MED LIST changes: +DAPA10TA PO; -LANTUS SQ; -METF-438 PO; +SEMA1SYR SQ
[2024-06-20] MEDS: famotidine 20mg tablet PO ONE (09:09)
[2024-06-20] MEDS: ceFAZolin 2gm in dextrose, iso 50 ML IV ONE (09:09)
[2024-06-20] MEDS ORDERED: LIDOcaine 1% 30ml preserv. free vial ONE (09:17)
[2024-06-20] MEDS ORDERED: BUPIVAcaine 2.5mg/ml inj 50ml vial (contains preservative) ONE (09:17)
[2024-06-20] MEDS ORDERED: morphine 2 MG/ML inj. syringe IV PRN (09:20)
[2024-06-20] MEDS ORDERED: ondansetron/PF 4mg/2ml inj IV PRN (09:20)
[2024-06-20] MEDS ORDERED: labetalol 20mg/4ml (5mg/ml) syringe IV PRN (09:20)
[2024-06-20] MEDS ORDERED: hydrALAZINE 20mg/ml inj. IV PRN (09:20)
[2024-06-20] MEDS ORDERED: fentaNYL/PF 50MCG/1 ML 2ML syringe IV PRN (09:20)
[2024-06-20] MEDS ORDERED: sevoflurane 250ml liquid IH ONE (10:09)
[2024-06-20] MEDS ORDERED: fentaNYL /PF 50mcg/ml 5ml ampule ONE (10:23)
[2024-06-20] MEDS ORDERED: midazolam 1 mg/ML 2ml injection ONE (10:23)
[2024-06-20] MEDS ORDERED: rocuronium 10mg/ml inj IV ONE ×3 (10:24→11:56)
[2024-06-20] MEDS ORDERED: LIDOcaine 2% (20mg/ml) 5ml vial ONE (10:24)
[2024-06-20] MEDS ORDERED: acetaminophen 1,000mg/100ml IV 100 ML IV ONE (10:24)
[2024-06-20] MEDS ORDERED: ondansetron/PF 4mg/2ml inj ONE (10:24)
[2024-06-20] MEDS ORDERED: propofol inj 20 ML IV ONE (10:24)
[2024-06-20] MEDS ORDERED: metoclopramide 5 mg/ml inj ONE (10:27)
[2024-06-20] MEDS ORDERED: albumin (Human) 5% 250ml 250 ML IV ONE (11:11)
[2024-06-20] MEDS ORDERED: sugammadex 200mg/2ml injection IV ONE (12:37)
[2024-06-20] MEDS: insulin regular, human 10 units/0.1 ml syringe SQ STA (13:17)
[2024-06-20] MEDS: morphine 4 MG/ML inj SYRINge IV PRN (13:30)
[2024-06-20] MEDS ORDERED: naloxone 0.4 mg/ml inj IV PRN (13:35)
[2024-06-20] MEDS: normal saline 1000ml 1,000 ML IV SCH (13:35)
[2024-06-20] MEDS: fentaNYL/PF 50MCG/1 ML 2ML syringe IV PRN (13:44)
[2024-06-20] MEDS: HYDROmorph/NS 0.2 mg/ml PCA 100 ML IV SCH (14:14)
[2024-06-20] MEDS: ringers solution, lacted 1,000 ML IV SCH ×2 (16:44→16:45)
[2024-06-20] MEDS ORDERED: DEXTROSE 15 GM of carb/4 tabs (each vial/BOTTLE has 4 tablets) PO PRN ×2 (17:55)
[2024-06-20] MEDS ORDERED: glucagon, human recombinant 1mg kit SUBCUT PRN (17:55)
[2024-06-20] MEDS ORDERED: dextrose 50%-water 50ml dispensing syringe IV PRN ×2 (17:55)
[2024-06-20] MEDS: INSULIN LISPRO 100 UNIT/ML INSULN.PEN MULTI-DOSE SQ SCH (18:55)
[2024-06-20] MEDS: heparin, porcine 5000 units/ml vial SQ SCH (20:55)
[2024-06-20] MEDS: DAPAGLIFLOZIN 10MG TABLET PO SCH (21:10)
[2024-06-21 06:00] VITALS: BP 155/95; PULSE 83; RESP 22; TEMP 97.9; O2SAT 96
[2024-06-21 07:44] VITALS: BP 152/64; PULSE 89; RESP 18; TEMP 98; O2SAT 95
[2024-06-21 08:00] VITALS: RESP 18; O2SAT 96
[2024-06-21 09:08] VITALS: BP_SYST 155; PULSE 83
[2024-06-21] MEDS: oxyCODONE/APAP 5-325mg tablet PO ONE (09:08)
[2024-06-21] MEDS: lisinopril 20mg tablet PO SCH (09:08)
[2024-06-21] MEDS: PCA WASTE DOCUMENTATION 1 MG ML MC SCH (09:19)
[2024-06-21] MEDS: oxyCODONE/APAP 5-325mg tablet PO PRN (14:18)
[2024-06-21 15:18] VITALS: RESP 16
[2024-06-21] MEDS ORDERED: PER5325T PO (15:20)
== END 2024-06-21 16:15 | disposition home or self-care (01) | DRG 220 ==
LOC: PAS IN 08:24 → SUR 3N 15:19
PROVIDERS: ADMIT Surgery; ATTEND Surgery
PROC: 8E0W4CZ Robotic Assisted Procedure of Trunk Region, Percutaneous Endoscopic Approach (ICD-10-PCS; 2024-06-20)
PROC: 0DQ64ZZ Repair Stomach, Percutaneous Endoscopic Approach (ICD-10-PCS; 2024-06-20)
PROC: 3E0T3BZ Introduction of Anesthetic Agent into Peripheral Nerves and Plexi, Percutaneous Approach (ICD-10-PCS; 2024-06-20)
PROC: 0BUT4JZ Supplement Diaphragm with Synthetic Substitute, Percutaneous Endoscopic Approach (ICD-10-PCS; principal; 2024-06-20 10:09)
DX: K44.9 Diaphragmatic hernia without obstruction or gangrene (principal); E11.9 Type 2 diabetes mellitus without complications; I10 Essential (primary) hypertension; Z87.891 Personal history of nicotine dependence
CPT/HCPCS: 36415; 71045; 80053; 82948; 83036; 85025; 87081; A4618; C1781; G0378; J0131; J0690; J1171; J1644; J1815; J2003; J2250; J2270; J2371; J2405; J2704; J2765; J3010; J3490; J7120; P9045

== ENCOUNTER 2024-07-14 17:25 | Inpatient (IN) | payer MEDICAID ==
[~2024-07-14] VITALS: Ht 170.2 cm; Wt 79.5 kg
[~2024-07-14 17:25] MED LIST changes: +PER5325T PO
--- NOTE | 2024-07-14 18:04 | Physician Documentation ---
History of Present Illness Chief Complaint: Abdominal Pain Stated Complaint: HERNIA PAIN Time Seen by MD: 18:03 Primary Medical Doctor: Kristin Source: patient Mode of Arrival: EMS, Stretcher HPI h/o dm2, hiatal hernia repair Dr Aranda 06/30, alcohol use disorder, pancreatitis p/w 6 days abd pain. Was recovering well post op, advanced diet well after week 2. 6 days ago had increasingpost prandial epigastric discomfort and fullness. Passing gas and having normal BM. Last this AM. He does report drinking a couple of beers 4 days ago Medication Reconciliation Allergies: Coded Allergies: No Known Allergies (Unverified , 02/16/09) Scheduled Dapagliflozin Propanediol (Farxiga), 1 TAB PO BID, (Reported) Ibuprofen (Ibuprofen), 1 TAB PO BID, (Reported) Lisinopril* (Lisinopril*), 1 TAB PO QAM, (Reported) Omeprazole (Prilosec), 1 CAP PO DAILY, (Reported) Semaglutide (Semaglutide), 1 SYR SQ Q7D, (Reported) Scheduled PRN Oxycodone Hcl/Acetaminophen 5/325 MG* (Percocet 5/325 MG*), 1 TAB PO Q4H PRN for moderate or severe pain 4-10 Past Medical History Past Medical History: Hypertension, Gastritis, GERD, Pancreatitis, Chronic Back Pain Past Surgical History: no surgical history, appendectomy Patient History: FH: HTN (hypertension) FATHER MOTHER FH: colon cancer FH: diabetes mellitus FATHER FH: prostate cancer FATHER Alcohol Use: Abuse Drug Use: none Lives with: Spouse Lives In: Home Occupation: employed Review of Systems All Other Systems at this time: Reviewed and Negative Constitutional: Denies: fever Respiratory: Denies: shortness of breath Cardiovascular: Denies: chest pain Gastrointestinal: Reports: poor fluid intake; Denies: nausea, vomiting, diarrhea, constipated, melena, hematemesis, hematochezia, rectal bleeding, rectal pain Genitourinary: Denies: burning, discharge Physical Exam Vital Signs: Temperature: 98.6, Source: Oral, Heart Rate: 104, Respiratory Rate: 20, BP: 154/114, Pulse Oximetry: 99, Weight: 79.550 Physical Exam non toxic well healing surgical scars abdomen non distended. ttp epigastric and periumbilical region, no guarding or rebound. Progress Progress Note Discussed case with hospitalist service who agreed to accept for admission Results/Orders Reviewed/noted all lab results: Yes Results/Orders Vital Signs 07/14/24 07/14/24 17:39 17:44 Temp 98.6 Pulse 104 Resp 18 20 B/P (MAP) 154/114 Pulse Ox 99 EKG/XRAY/CT/US/VASC/MRI CT : Impression CT abdomen interpreted independently by myself shows no free air, severely atrophied pancreas Medical Decision Making Additional info obtained from: old records Findings 06/[address] Aranda Description of Procedure: Patient was brought to the operating room and identified by the nursing staff and the attending physician. Patient was placed supine and general anesthesia was induced. Preoperative antibiotics were given. Briceno catheter was placed. The abdomen was prepped and draped in the standard sterile fashion. At [place]'s point, Veress needle technique was used through a stab incision to access and i nsufflate the abdomen. This was accomplished without incident. An optical, 12 mm trocar was used to gain access to the abdomen in the left upper quadrant under laparoscopic visualization. Additional 8.5 mm robotic trochars were placed under laparoscopic visualization in the left lateral upper abdomen, left epigastrium and right upper quadrant. Patient was placed in steep, reverse Trendelenburg position. The da Willian robotic arm was docked to the patient and instruments guided into the abdomen under laparoscopic visualization. The left lobe of the liver was lifted and the hiatus inspected. Fairly large hiatal defect was noted. An 18 inch, 0, V-Loc suture was used to sling the left lobe of the liver up to the anterior abdominal wall. During retraction, the midportion of the left lobe of the liver cracked. there was some venous bleeding. This fissure was packed with Surgicel. Approximately 25% of the stomach was herniated above the hiatus. With the stomach retracted towards the patient's left upper quadrant, dissection was initiated along the pars flaccida and the lesser sac was entered. The lesser omentum was divided up to the right mary. There was, what appeared to be a small replaced left hepatic artery which was left intact. Dissection was carried in to the mediastinum. The mediastinal space was entered. Dissection was then carried posteriorly along the right mary, taking care to leave peritoneum overlying the muscles. Once the posterior decussation was encountered, attention was then turned to the short gastric vessels. Stomach was retracted toward the patient's right and the short gastric vessels were placed on tension. The short gastric vessels were divided along the upper portion of the greater curvature, up to the phrenoesophageal ligament which was also then divided. The peritoneal reflection of the left mary was opened and dissection carried up until the apex of the crura was reached. Dissection was carried up into the mediastinum, mobilizing the esophagus from the retrocardiac space and taking care not to injure the bilateral pleura. The entire hernia sac which was fairly large in size, was mobilized out of the mediastinum and reduced into the abdomen. Excess sac was dissected at the level of the gastroesophageal fat pad and set aside. The retroesophageal space was developed. The GE junction was retracted anteriorly and the mediastinal dissection was carried out posterior to the esophagus. Dissection continued until at least 3 cm of intra-abdominal esophagus was obtained without any retraction on the stomach. With the stomach retracted anteriorly, adequate space and visualization was obtained to allow for the crural repair. Strips of bioabsorbable, Phasix mesh were used to reinforce the crural repair. A strip of mesh was placed over each crura and used for reapproximation without tension. Attention was then turned to the gastropexy. Fundus was anchored to the upper left portion of the hiatus with full-thickness crural sutures. The suture was then run along the greater curvature creating a gastropexy to the anterior abdominal wall. Care was taken to stay medial to the phrenic nerve and vascular bundle. About a fourth of the gastric fundus was anchored to the anterior abdom inal wall. Attention was then turned to the modified Hill procedure/augmentation stitch. The angle of His was then recreated with a running, 2/0, absorbable, V-Loc suture. This was run between the fundus and the lateral border of the intra-abdominal esophagus. This suture was run up to the level of the left mary. Gastropexy was then completed by running the midportion of the gastric fundus towards the initial gastropexy suture and anchoring the 2 together. [place] and sutures were retrieved. The da Willian robotic arm was undocked from the patient. The 12 mm port was removed and the fascial defect closed percutaneously with 0 Vicryl suture. Remaining ports were removed and the abdomen was allowed to deflate. Skin was closed at all sites with 4-0 Monocryl sutures and dressed with Dermabond. Patient was extubated and transferred to the postanesthesia care unit in stable condition. Differential Dx:Considerations: Include: AAA, Aortic dissection, Bowel obstruction, Cholangitis, GI hemorrhage Departure Disposition: 09 ADMITTED INPATIENT Impression: Primary Impression: Acute pancreatitis Referrals: NO PRIMARY CARE PROVIDER (PCP) Signature Scribe Signature: na Attestation: ANURADHA Jameson MD July 14, 2024 18:04
[2024-07-14] MEDS: diatr meglu/diatrizoate 30ml oral sol.-(3 dose) bottle PO SCH (18:20)
[2024-07-14 18:34] LABS: BASOPHILS % (AUTO) 0.5 % (0-1); EOSINOPHILS % (AUTO) 0.3 % (0-6); HEMATOCRIT 37.2 % (42.0-52.0); HEMOGLOBIN 11.9 g/dl (14.0-17.9); LYMPHOCYTES # (AUTO) 1.3 X10'3 (1.1-4.8); LYMPHOCYTES % (AUTO) 18.8 % (21-51); MEAN CORPUSCULAR HEMOGLOBIN 27.6 PG (27.0-31.0); MEAN CORPUSCULAR VOLUME 86.2 FL (78-98); MEAN PLATELET VOLUME 8.9 FL (7.4-10.4); MONOCYTES # (AUTO) 0.7 X10'3 (0-0.9); MONOCYTES % (AUTO) 10.1 % (2-12); NEUTROPHILS # (AUTO) 4.9 X10'3 (1.8-7.7); NEUTROPHILS % (AUTO) 70.3 % (42-75); PLATELET COUNT 454 X10'3 (140-440); RED BLOOD COUNT 4.32 X10'6 (4.70-6.10); RED CELL DISTRIBUTION WIDTH 14.6 % (11.5-14.5)
[2024-07-14 18:43] LABS: ALANINE AMINOTRANSFERASE 36 U/L (12-78); ALBUMIN 3.8 G/DL (3.4-5.0); ALBUMIN/GLOBULIN RATIO 1.1 (1.1-1.5); ALKALINE PHOSPHATASE 112 IU/L (46-116); ANION GAP 11 (8-16); ASPARTATE AMINO TRANSFERASE 18 U/L (10-37); BILIRUBIN,TOTAL 0.7 MG/DL (0.1-1.0); BLOOD UREA NITROGEN 25 MG/DL (7-18); BUN/CREATININE RATIO 20.7 (10.0-20.0); CALCIUM 8.8 MG/DL (8.5-10.1); CHLORIDE 96 MMOL/L (99-107); CREATININE 1.21 MG/DL (0.60-1.10); GLUCOSE 248 MG/DL (70-104); LIPASE 9 U/L (16-77); POTASSIUM 4.7 MMOL/L (3.5-5.1); SODIUM 134 MMOL/L (135-145); TOTAL CARBON DIOXIDE 27.4 MMOL/L (24-32); TOTAL PROTEIN 7.2 G/DL (6.4-8.2); eCRCL 60 ML/MIN; eGFR 61 ML/MIN
[2024-07-14] MEDS: morphine 4 MG/ML inj SYRINge IV ONE ×2 (18:53→23:28)
[2024-07-14] MEDS: ringers solution, lacted 1,000 ML IV ONE ×2 (18:53→23:29)
[2024-07-14] MEDS ORDERED: iohexol 300mg/ml 100ml inj. ONE (20:45)
--- NOTE | 2024-07-14 22:48 | RADIOLOGY REPORT ---
Clinical History post operative abdominal pain Comparison CT ABD/PEL on 08/08/2020, 385 images. Technique: All CT scans at this medical facility are performed using dose modulation techniques as appropriate t o a performed exam including the following: Automated exposure control was utilized; adjustment of th e mA and/or kV according to patient size; and use of iterative reconstruction technique. All CT studies are reported to the Dose Index Registry of the [employer]. Contrast: omni 300 100ml Radiation Dose: CTDI (mGy): 19.62; DLP (mGy-cm): 994.80 FREY SERINA, [id number] Comparison: 08/08/20 FINDINGS: Lower chest: Bibasilar atelectasis Liver: Extensive diffuse hepatic fatty infiltration with foci of fatty sparing seen adjacent to the g allbladder. Gallbladder: Unremarkable Pancreas: Severe diffuse pancreatic atrophy Spleen: Unremarkable Adrenals:Unremarkable Kidneys: Minimal bilateral perinephric stranding of fat.No calcified nephroureterolithiasis or hydrou reteronephrosis. Stomach:Unremarkable Bowel: No small or large bowel acute abnormality. The appendix is not visualized Urinary bladder:Unremarkable Reproductive organs:No pelvic masses Peritoneum, retroperitoneum, lymphadenopathy:Unremarkable Vascular structures: Atherosclerotic calcification of abdominal vasculature Abdominal wall: Small uncomplicated fat-containing right inguinal canal hernia Musculoskeletal:No acute osseous abnormality IMPRESSION: Extensive diffuse hepatic fatty infiltration. Diffuse pancreatic atrophy. No evidence of acute intra-abdominal abnormality This report was electronically signed by Ozzie Gil MD on 07/14/2024 10:45:34 PM.
[2024-07-14] MEDS ORDERED: morphine 4 MG/ML inj SYRINge IV ONE (23:15)
[2024-07-14 23:30] LABS: ETHANOL < 10 MG/DL (<10)
[2024-07-14] MEDS ORDERED: magnesium hydroxide 30ml (MOM) UD suspension PO PRN (23:45)
[2024-07-14] MEDS ORDERED: acetaminophen 325mg tablet PO PRN (23:45)
[2024-07-14] MEDS ORDERED: potassium Cl 40MEQ/1/2NS 520ml 520 ML IV PRN (23:45)
[2024-07-14] MEDS ORDERED: ondansetron/PF 4mg/2ml inj IV PRN (23:45)
[2024-07-14] MEDS ORDERED: morphine 2 MG/ML inj. syringe IV PRN (23:45)
[2024-07-14] MEDS ORDERED: potassium Cl 20 mEq SR tablet PO PRN ×2 (23:45)
[2024-07-14] MEDS ORDERED: magnesium sulf-water 4G/100mL 100 ML IV PRN (23:45)
[2024-07-14] MEDS ORDERED: mag hydrox/Alum hydrox/simeth 30ml oral suspension PO PRN (23:45)
[2024-07-14] MEDS ORDERED: magnesium sulf-water 2g/50mL 50 ML IV PRN (23:45)
--- NOTE | 2024-07-14 23:49 | HISTORY AND PHYSICAL-Residence ---
History & Physical Providers to CC Resident Creating Document: ROGE SORIA, RES ~ History of Present Illness Primary Medical Doctor: Chantelle Wilburn Md. Reason for Admit\Complaint: Abdominal pain History of Present Illness PCP: Chantelle Wilburn Md. 59-year-old male patient with past medical history of diabetes mellitus, hypertension, chronic pancreatitis came to the hospital with chief complaint of abdominal pain. The patient reports that his abdominal pain started approximately four days ago, he describes this pain as sharp type, 9/10 in intensity, with radiation to the back, mildly improvement of pain when the patient leans forward. On associated factors the patient endorses that four days ago he drank two beers and after that his pain started, not subsiding until today which prompted him to come to the hospital. The patient was taking pain medication that surgeon sent him for pain management of hiatal hernia repair surgery on June 20, 2024. After his surgery his pain has been well controlled with his pain medication from surgical area but he describes this pain completely different and similar to a previous episode of acute pancreatitis that he experienced 10 years ago. The patient currently denies nausea, vomiting, shortness of breath, palpitations, chest pain, intestinal or urinary symptoms. He endorses that he had one normal bowel movement this morning. Allergies: Coded Allergies: No Known Allergies (Unverified , 02/16/09) Home Medications Home Medications Active Percocet 5/325 MG* (Oxycodone/Acetaminophen) 5 Mg/325 Mg Tablet 1 Tab PO Q4H PRN 5 Days Reported Semaglutide 1 Mg/0.2 Ml Syringe 1 Syr SQ Q7D PER PT, LAST DOSE 06/07 Farxiga (Dapagliflozin Propanediol) 10 Mg Tablet 1 Tab PO BID Prilosec (Omeprazole) 40 Mg Capsule 1 Cap PO DAILY Ibuprofen 800 Mg Tablet 1 Tab PO BID Lisinopril* (Lisinopril) 40 Mg Tablet 1 Tab PO QAM Past Medical History Past Medical History Diabetes currently on Ozempic and Farxiga. Hypertension currently on lisinopril. Chronic pancreatitis Past Surgical History Surgical History Comment Appendectomy. Paraesophageal hernia repair. Bilateral carpal tunnel surgery. Family History Family History: FH: HTN (hypertension) FATHER MOTHER FH: colon cancer FH: diabetes mellitus FATHER FH: prostate cancer FATHER Past Social History Smoking: Quit greater than 1 year (As per patient he quit smoking 13 years ago. He used to smoke one pack a day for 10 years.) Alcohol Use: Abuse (The patient drank four days ago two beers. Previous to that he endorses that his last drink was seven years ago. He used to drink pt of whiskey daily for at least five years.) Drug Use: None Lives with: Other (Ex-) Lives In: Home Occupation: employed ([employer]) ROS All Other Systems: Reviewed and Negative Constitutional: Denies: fever Respiratory: Denies: shortness of breath Cardiovascular: Denies: chest pain Gastrointestinal: Reports: poor fluid intake; Denies: nausea, vomiting, diarrhea, constipated, melena, hematemesis, hematochezia, rectal bleeding, rectal pain Genitourinary: Denies: burning, discharge Exam Vitals: Vital Signs Date Time Temp Pulse Resp B/P (MAP) Pulse Ox O2 Delivery O2 Flow Rate FiO2 07/14/24 23:28 20 07/14/24 17:44 07/14/24 17:39 98.6 104 99 Physical exam: General: Well alert, well oriented, not confused, not agitated, not in acute distress, well cooperated during the physical. HEENT: Conjunctive are pink, sclerae clear, no icterus, pupil is equal in both sides, reactive to light, no ear discharge, no pharyngeal erythema or an edema. Neck: Supple, no JVD, no lymphadenopathy and thyromegaly. Chest: Equal air entry on both lungs, no additional sounds no rhonchi no wheezing at the moment. Cardiovascular: S1-S2 regular sinus rhythm and, regular rate, no gallops, no rubs, no murmurs Abdomen: No visible peristalsis, Bowel sounds present on auscultation, soft, no guarding, no rigidity, presence of tenderness at the level of the epigastrium with superficial palpation. Extremities: No obvious deformities, no pitting edema bilaterally, capillary refill intact, peripheral pulsations are intact on both sides Central Nervous System: No focal neurological deficits, no motor or sensory weakness in all 4 extremities, could move all 4 extremities, 2+ deep tendon reflexes, negative Babinski. Musculoskeletal: No joint swelling, deformities, inflammations, and no scoliosis and back tenderness Skin: Presence of scars at the level of lower abdomen, without signs of infection or inflammation. Diagnostic Data Last Recorded Lab Results: 07/14/24180407/14/241804 Advance Care Planning Advanced Care plannin - 30 Minutes (I spent a total of 17 minutes on reviewing various resuscitative measures/ACP with the patient at the time of admission. The patient has decided on a full code status.) Additional Plan Assessment and plan: 59-year-old male patient came to the hospital with chief complaint of abdominal pain. Abdominal pain: Acute on chronic pancreatitis: The patient came to the hospital with chief complaint of abdominal pain, localized in the epigastrium with radiation to the back. The patient does have a history of chronic pancreatitis. Endorses drinking alcohol when the pain started. Abdomen/pelvis CT: Extensive diffuse hepatic fatty infiltration. Diffuse pancreatic atrophy. No evidence of acute intra-abdominal abnormality. Follow-up lipid panels. Lipase levels 9. In the setting of diffuse pancreatic atrophy. Follow-up lipase levels. Pain control with morphine. Ringer lactate at 100 mL/hour. Acute kidney injury likely secondary to renal tubular stasis: Creatinine 1.21, BUN/creatinine ratio 20.7. Follow-up urine lytes. Ringer lactate at 100 mL/hour. Hypertensive urgency: Blood pressure 154/114. Hydralazine 10 mg IV p.r.n. Lisinopril 40 mg daily. Uncontrolled diabetes mellitus: Glucose levels 248. Hemoglobin A1c on 06/20/2024 7.5. Hyperglycemia/hypoglycemia protocol in place. Lantus 15 units HS. Medium dose sliding scale. Normocytic normochromic anemia: Hemoglobin 11.9, hematocrit 37.2. Follow-up iron studies. Code status: Full code DVT prophylaxis: Heparin Analgesia/sedation: Morphine Line/tube: PIV GI prophylaxis: None Nutrition: Clear liquid diet PT: Ordered Prognosis: Guarded Disposition: The patient will be admitted to surgical floor. I saw and discussed the care of this patient with the resident Agree with plan of care as documented Roge Hoskins Internal Medicine Resident [facility] Date of Service: July 14, 2024 Billing Provider: ANDRE YUN MD, FRANCO LUIS, RES July 14, 2024 23:49 ANDRE YUN MD July 15, 2024 07:44
[2024-07-15] VITALS (7 sets, daily range): BP systolic 127–166; BP diastolic 84–113; PULSE 82–98; RESP 16–18; TEMP 97.7–98.4; O2SAT 17–100
[2024-07-15] MEDS ORDERED: dextrose 50%-water 50ml dispensing syringe IV PRN ×2 (00:40)
[2024-07-15] MEDS: insulin glargine (Lantus) pen - multi-dose SQ SCH (00:40)
[2024-07-15] MEDS ORDERED: glucagon, human recombinant 1mg kit SUBCUT PRN (00:40)
[2024-07-15] MEDS ORDERED: DEXTROSE 15 GM of carb/4 tabs (each vial/BOTTLE has 4 tablets) PO PRN (00:40)
[2024-07-15] MEDS: pantoprazole 40 MG vial IV ONE (00:42)
[2024-07-15] MEDS: morphine 4 MG/ML inj SYRINge IV ONE (00:42)
[2024-07-15] MEDS: ringers solution, lacted 1,000 ML IV SCH (00:43)
[2024-07-15 01:25] LABS: BASOPHILS % (AUTO) 0.6 % (0-1); EOSINOPHILS # (AUTO) 0.1 X10'3 (0-0.9); HEMATOCRIT 33.3 % (42.0-52.0); HEMOGLOBIN 11.1 g/dl (14.0-17.9); LYMPHOCYTES # (AUTO) 2.3 X10'3 (1.1-4.8); LYMPHOCYTES % (AUTO) 33.3 % (21-51); MEAN CORPUSCULAR HEMOGLOBIN 28.8 PG (27.0-31.0); MEAN CORPUSCULAR HGB CONC 33.4 g/dL (33.0-36.5); MEAN CORPUSCULAR VOLUME 86.3 FL (78-98); MEAN PLATELET VOLUME 8.8 FL (7.4-10.4); MONOCYTES # (AUTO) 0.8 X10'3 (0-0.9); MONOCYTES % (AUTO) 10.8 % (2-12); NEUTROPHILS # (AUTO) 3.7 X10'3 (1.8-7.7); NEUTROPHILS % (AUTO) 53.3 % (42-75); PLATELET COUNT 380 X10'3 (140-440); RED BLOOD COUNT 3.85 X10'6 (4.70-6.10); RED CELL DISTRIBUTION WIDTH 14.5 % (11.5-14.5)
[2024-07-15 01:34] LABS: % IRON SATURATION 54 % (11-46); IRON 115 UG/DL (53-167); TOTAL IRON BINDING CAPACITY 212 UG/DL (259-388)
[2024-07-15 01:44] LABS: ALANINE AMINOTRANSFERASE 32 U/L (12-78); ALBUMIN 3.3 G/DL (3.4-5.0); ALKALINE PHOSPHATASE 98 IU/L (46-116); ANION GAP 13 (8-16); ASPARTATE AMINO TRANSFERASE 16 U/L (10-37); BILIRUBIN,TOTAL 0.8 MG/DL (0.1-1.0); BLOOD UREA NITROGEN 20 MG/DL (7-18); BUN/CREATININE RATIO 20.6 (10.0-20.0); CALCIUM 8.7 MG/DL (8.5-10.1); CHLORIDE 99 MMOL/L (99-107); CHOL/HDL RATIO 2.2 (0.00-4.99); CHOLESTEROL 171 MG/DL (0-200); CREATININE 0.97 MG/DL (0.60-1.10); FERRITIN 230 NG/ML (26-388); GLUCOSE 115 MG/DL (70-104); HDL CHOLESTEROL 79 MG/DL (35-60); LDL CHOLESTEROL 68 MG/DL (50-100); MAGNESIUM 1.6 MG/DL (1.5-2.4); POTASSIUM 4.4 MMOL/L (3.5-5.1); SODIUM 136 MMOL/L (135-145); TOTAL PROTEIN 6.5 G/DL (6.4-8.2); TRIGLYCERIDES 90 MG/DL (20-135); eCRCL 75 ML/MIN; eGFR 79 ML/MIN
[2024-07-15 01:47] LABS: OSMOLALITY 285 MOSM/K (280-300)
[2024-07-15 02:36] LABS: BILIRUBIN,URINE NEGATIVE (Neg); CLARITY,URINE CLEAR (Clear); COLOR,URINE YELLOW (Yellow); GLUCOSE, URINE >=1000 mg/dl (Neg); KETONES,URINE NEGATIVE (Neg); LEUKOCYTE ESTERASE ,URINE NEGATIVE (Neg); NITRITES, URINE NEGATIVE (Neg); OCCULT BLOOD,URINE NEGATIVE (Neg); PROTEIN,URINE NEGATIVE (Neg); UROBILINOGEN,URINE 0.2 E.U/dL (0.2-1.0)
[2024-07-15 02:42] LABS: TOTAL PROTEIN,URINE RANDOM 8.4 MG/DL
[2024-07-15 02:45] LABS: UA COLLECTION TYPE CLN CATCH MIDSTREAM
[2024-07-15 02:49] LABS: BACTERIA,URINE NONE SEEN /HPF (Neg); RBC,URINE NONE SEEN /HPF (0-2); SQUAMOUS EPITHELIAL CELL,UR NONE SEEN /LPF (FEW); WBC,URINE NONE SEEN /HPF (0-4)
[2024-07-15] MEDS: morphine 2 MG/ML inj. syringe IV PRN (03:33)
[2024-07-15] MEDS: hydrALAZINE 20mg/ml inj. IV PRN (03:38)
[2024-07-15] MEDS: INSULIN LISPRO 100 UNIT/ML INSULN.PEN MULTI-DOSE SQ SCH (07:00)
[2024-07-15] MEDS: K and/or MAG REPLACEMENT MC SCH (08:02)
[2024-07-15] MEDS: lisinopril 20mg tablet PO SCH (08:03)
[2024-07-15] MEDS: heparin, porcine 5000 units/ml vial SQ SCH (08:03)
[2024-07-15] MEDS: docusate sod 100mg capsule PO SCH (08:03)
--- NOTE | 2024-07-15 10:01 | PROGRESS NOTE ---
Daily Progress Note Providers to CC ~ chief complaint, abdominal pain epigastric, improving Central Line/PICC still needed: No Briceno-Non Protocol Briceno Indications Met/Not Met: F/C Indications Not Met Antibiotic Timeout Antibiotic Ordered?: No MRSA Education MRSA Education Provided to pt: No Subjective As above Objective Vital Signs Date Time Temp Pulse Resp B/P (MAP) Pulse Ox O2 Delivery O2 Flow Rate FiO2 07/15/24 08:54 20 07/15/24 08:03 86 07/15/24 07:19 98.2 127/84 (98) 98 Room Air Vital signs, stable ,afebrile. Pulse Oximetry reflects adequate oxygenation. BMI is 27, weight 79 kg General: well developed, well nourished. Awake , alert, and oriented x4, resting comfortably in the bed, in no acute distress . Skin: Warm, dry, no pallor, no rash or petechiae. HEENT: Atraumatic, normocephalic, EOMI, anicteric sclera B; pink conjunctiva; PERRLA, normal oropharynx, moist oral and nasal mucosa. Tympanic membrane , nose , throat clear. Neck: Trachea midline. Supple, full range of motion, no JVD, bruit , hepatojugular reflex , lymphadenopathy or masses, or other lesions Cardiac: Regular rhythm, regular rate no murmurs, rubs, or gallops. Normal S1 and S2, no S3 noticed. PMI is normal. Respiratory: Equal breath sounds bilaterally, no tachypnea; lungs clear to auscultation bilaterally, no wheezing ,rub or rales, or crackles. Chest wall is symmetric and without deformity. No signs of trauma. Chest wall is nontender. No signs of respiratory distress. Resonance is normal upon percussion bilaterally. Gastrointestinal: Abdomen symmetric, non-distended, soft, mild tender to palpation epigastric area, normal bowel sounds x4 quadrant, normoactive, no hepatosplenomegaly , no masses , no bruit, no flank pain bilaterally. No voluntary guarding, rebound, or rigidity. No tenderness to percussion. No pulsatile masses. Equal femoral pulses. No Nino's sign or McBurney point tenderness. Back; no CVA tenderness bilaterally, no deformities. Neck and back are without deformity as well. No tenderness noted on palpation of the spinous processes. Spinous processes are midline. Cervical, thoracic, and lumbar paraspinal muscles are not tender and are without spasm. : normal external genitalia, without lesions, swelling, masses or tenderness. Musculoskeletal: Extremities, normal range of motion, non-tender, muscle strength 5/5 x 4. Negative Homans signs bilaterally on lower extremity. Distal pulses full symmetrical, no clubbing, cyanosis , edema. Neurological: Speech is clear, alert, and oriented x 4. No motor or sensory deficit, deep tendon reflexes normal, cerebellar intact. Cranial nerves II-XII intact. Psych: Alert and or appropriate, normal affect. Vascular: Good distal pulses, which are equal x4; capillary refill less than 2 seconds. Lymphatic, no lymphadenopathy. Result Diagram: 07/15/2410007/15/24100 Problem\Assessment\Plan Assessment and plan: 59-year-old male patient came to the hospital with chief complaint of abdominal pain. Abdominal pain: Acute on chronic pancreatitis: Normal lipase for now The patient came to the hospital with chief complaint of abdominal pain, localized in the epigastrium with radiation to the back. The patient does have a history of chronic pancreatitis. Endorses drinking alcohol when the pain started. Abdomen/pelvis CT: Extensive diffuse hepatic fatty infiltration. Diffuse pancreatic atrophy. No evidence of acute intra-abdominal abnormality. Follow-up lipid panels. Lipase levels 9. In the setting of diffuse pancreatic atrophy. Follow-up lipase levels. Pain control with morphine. Ringer lactate at 100 mL/hour. Acute kidney injury likely secondary to renal tubular stasis: Creatinine 1.21, BUN/creatinine ratio 20.7. Follow-up urine lytes. Ringer lactate at 100 mL/hour. Hypertensive urgency: Blood pressure 154/114. Hydralazine 10 mg IV p.r.n. Lisinopril 40 mg daily. Uncontrolled diabetes mellitus: Glucose levels 248. Hemoglobin A1c on 06/20/2024 7.5. Hyperglycemia/hypoglycemia protocol in place. Lantus 15 units HS. Medium dose sliding scale. Normocytic normochromic anemia: Hemoglobin 11.9, hematocrit 37.2. Follow-up iron studies. Code status: Full code DVT prophylaxis: Heparin Analgesia/sedation: Morphine Line/tube: PIV GI prophylaxis: None Nutrition: Clear liquid diet PT: Ordered Prognosis: Guarded Sepsis Screening Reassessment Date: July 15, 2024 Date of Service: July 15, 2024 Billing Provider: JACQUELINE BENNETT MD Common Visit Codes: 26043-[id number] INP/OBS CARE(HIGH) JACQUELINE BENNETT MD July 15, 2024 10:01
[2024-07-15] MEDS: HYDROmorphone 1 mg/ml syringe IV PRN (11:30)
[2024-07-15] MEDS: diazepam inj 5 MG/ML inj. IV PRN ×2 (13:49→17:50)
[2024-07-15] MEDS: morphine 4 MG/ML inj SYRINge IV PRN (16:17)
[2024-07-15 17:46] LABS: D-DIMER 0.45 MG/L FEU (0-0.50)
[2024-07-15] MEDS: ringers solution, lacted 1,000 ML IV ONE (17:50)
[2024-07-15 18:00] LABS: CREATINE KINASE 30 U/L (39-308); LIPASE 17 U/L (16-77); PHOSPHORUS 3.2 MG/DL (2.3-4.5); PRO BRAIN NATRIURETIC PEPTIDE 124 PG/ML (0-125); THYROID STIMULATING HORMONE 1.62 ulU/ml (0.34-4.50)
[2024-07-16 05:59] LABS: BASOPHILS % (AUTO) 0.4 % (0-1); EOSINOPHILS # (AUTO) 0.2 X10'3 (0-0.9); EOSINOPHILS % (AUTO) 2.6 % (0-6); HEMATOCRIT 27.7 % (42.0-52.0); HEMOGLOBIN 9.4 g/dl (14.0-17.9); LYMPHOCYTES # (AUTO) 2.1 X10'3 (1.1-4.8); MEAN CORPUSCULAR HEMOGLOBIN 29.3 PG (27.0-31.0); MEAN CORPUSCULAR HGB CONC 33.9 g/dL (33.0-36.5); MEAN CORPUSCULAR VOLUME 86.3 FL (78-98); MEAN PLATELET VOLUME 8.7 FL (7.4-10.4); MONOCYTES # (AUTO) 0.8 X10'3 (0-0.9); MONOCYTES % (AUTO) 12.6 % (2-12); NEUTROPHILS # (AUTO) 3.4 X10'3 (1.8-7.7); NEUTROPHILS % (AUTO) 52.4 % (42-75); PLATELET COUNT 296 X10'3 (140-440); RED BLOOD COUNT 3.21 X10'6 (4.70-6.10); RED CELL DISTRIBUTION WIDTH 14.5 % (11.5-14.5); WHITE BLOOD COUNT 6.5 X10'3 (4.5-11.0)
[2024-07-16 06:00] VITALS: BP 119/83; PULSE 76; RESP 16; TEMP 98; O2SAT 99
[2024-07-16 06:13] LABS: ALANINE AMINOTRANSFERASE 23 U/L (12-78); ALBUMIN 2.7 G/DL (3.4-5.0); ALKALINE PHOSPHATASE 83 IU/L (46-116); ANION GAP 8 (8-16); ASPARTATE AMINO TRANSFERASE 15 U/L (10-37); BILIRUBIN,TOTAL 0.3 MG/DL (0.1-1.0); BLOOD UREA NITROGEN 8 MG/DL (7-18); BUN/CREATININE RATIO 10.4 (10.0-20.0); CALCIUM 8.3 MG/DL (8.5-10.1); CHLORIDE 106 MMOL/L (99-107); CREATININE 0.77 MG/DL (0.60-1.10); GLUCOSE 68 MG/DL (70-104); LIPASE 9 U/L (16-77); MAGNESIUM 1.4 MG/DL (1.5-2.4); POTASSIUM 4.3 MMOL/L (3.5-5.1); SODIUM 144 MMOL/L (135-145); TOTAL CARBON DIOXIDE 29.8 MMOL/L (24-32); TOTAL PROTEIN 5.5 G/DL (6.4-8.2); eCRCL 94 ML/MIN; eGFR > 90 ML/MIN
[2024-07-16] MEDS: DEXTROSE 15 GM of carb/4 tabs (each vial/BOTTLE has 4 tablets) PO PRN (07:17)
[2024-07-16 08:00] VITALS: RESP 17; O2SAT 98
[2024-07-16] MEDS: magnesium Cl slow-release 64mg tablet PO PRN (08:09)
[2024-07-16 10:00] VITALS: BP 114/84; PULSE 85; RESP 13; TEMP 98.1; O2SAT 94
--- NOTE | 2024-07-16 17:49 | PROGRESS NOTE ---
Daily Progress Note Providers to CC ~ chief complaint, abdominal pain, it is improving Central Line/PICC still needed: No Briceno-Non Protocol Briceno Indications Met/Not Met: F/C Indications Not Met Antibiotic Timeout Antibiotic Ordered?: No MRSA Education MRSA Education Provided to pt: No Subjective As above Objective Vital Signs Date Time Temp Pulse Resp B/P (MAP) Pulse Ox O2 Delivery O2 Flow Rate FiO2 07/16/24 17:14 16 07/16/24 10:00 98.1 85 114/84 (94) 94 Room Air Vital signs, stable ,afebrile. Pulse Oximetry reflects adequate oxygenation. General: well developed, well nourished. Awake , alert, and oriented x4, resting comfortably in the bed, in no acute distress . Skin: Warm, dry, no pallor, no rash or petechiae. HEENT: Atraumatic, normocephalic, EOMI, anicteric sclera B; pink conjunctiva; PERRLA, normal oropharynx, moist oral and nasal mucosa. Tympanic membrane , nose , throat clear. Neck: Trachea midline. Supple, full range of motion, no JVD, bruit , hepatojugular reflex , lymphadenopathy or masses, or other lesions Cardiac: Regular rhythm, regular rate no murmurs, rubs, or gallops. Normal S1 and S2, no S3 noticed. PMI is normal. Respiratory: Equal breath sounds bilaterally, no tachypnea; lungs clear to auscultation bilaterally, no wheezing ,rub or rales, or crackles. Chest wall is symmetric and without deformity. No signs of trauma. Chest wall is nontender. No signs of respiratory distress. Resonance is normal upon percussion bilaterally. Gastrointestinal: Abdomen symmetric, non-distended, soft, tender to palpation epigastric area, normal bowel sounds x4 quadrant, normoactive, no hepatosplenomegaly , no masses , no bruit, no flank pain bilaterally. No voluntary guarding, rebound, or rigidity. No tenderness to percussion. No pulsatile masses. Equal femoral pulses. No Nino's sign or McBurney point tenderness. Back; no CVA tenderness bilaterally, no deformities. Neck and back are without deformity as well. No tenderness noted on palpation of the spinous processes. Spinous processes are midline. Cervical, thoracic, and lumbar paraspinal muscles are not tender and are without spasm. : normal external genitalia, without lesions, swelling, masses or tenderness. Musculoskeletal: Extremities, normal range of motion, non-tender, muscle strength 5/5 x 4. Negative Homans signs bilaterally on lower extremity. Distal pulses full symmetrical, no clubbing, cyanosis , edema. Neurological: Speech is clear, alert, and oriented x 4. No motor or sensory deficit, deep tendon reflexes normal, cerebellar intact. Cranial nerves II-XII intact. Psych: Alert and or appropriate, normal affect. Vascular: Good distal pulses, which are equal x4; capillary refill less than 2 seconds. Lymphatic, no lymphadenopathy. Result Diagram: 07/16/24 0515 07/16/24 0515 Coagulation Studies Laboratory Tests Test 07/15/24 17:24 D-Dimer 0.45 MG/L FEU (0-0.50) D-Dimer Comment Problem\Assessment\Plan Assessment and plan: 59-year-old male patient came to the hospital with chief complaint of abdominal pain. Abdominal pain: Acute on chronic pancreatitis: Normal lipase for now The patient came to the hospital with chief complaint of abdominal pain, localized in the epigastrium with radiation to the back. The patient does have a history of chronic pancreatitis. Endorses drinking alcohol when the pain started. Abdomen/pelvis CT: Extensive diffuse hepatic fatty infiltration. Diffuse pancreatic atrophy. No evidence of acute intra-abdominal abnormality. Follow-up lipid panels. Lipase levels 9. In the setting of diffuse pancreatic atrophy. Follow-up lipase levels. Pain control with morphine. Ringer lactate at 100 mL/hour. Acute kidney injury likely secondary to renal tubular stasis: Creatinine 1.21, BUN/creatinine ratio 20.7. Follow-up urine lytes. Ringer lactate at 100 mL/hour. Hypertensive urgency: Blood pressure 154/114. Hydralazine 10 mg IV p.r.n. Lisinopril 40 mg daily. Uncontrolled diabetes mellitus: Glucose levels 248. Hemoglobin A1c on 06/20/2024 7.5. Hyperglycemia/hypoglycemia protocol in place. Lantus 15 units HS. Medium dose sliding scale. Normocytic normochromic anemia: Hemoglobin 11.9, hematocrit 37.2. Follow-up iron studies. Code status: Full code DVT prophylaxis: Heparin Analgesia/sedation: Morphine Line/tube: PIV GI prophylaxis: None Nutrition: Clear liquid diet PT: Ordered Prognosis: Guarded Sepsis Screening Reassessment Date: July 16, 2024 Date of Service: July 16, 2024 Billing Provider: JACQUELINE BENNETT MD Common Visit Codes: [id number] INP/OBS CARE(HIGH) JACQUELINE BENNETT MD July 16, 2024 17:49
[2024-07-16 18:00] VITALS: BP 118/80; PULSE 85; RESP 16; TEMP 97.9; O2SAT 97
[2024-07-16 19:45] VITALS: RESP 14; O2SAT 95
[2024-07-16 22:00] VITALS: BP 129/90; PULSE 91; RESP 14; TEMP 97.4; O2SAT 99
[2024-07-17 06:00] VITALS: BP 108/77; PULSE 80; RESP 15; TEMP 97.2; O2SAT 98
[2024-07-17 06:06] LABS: BASOPHILS % (AUTO) 0.3 % (0-1); EOSINOPHILS # (AUTO) 0.2 X10'3 (0-0.9); EOSINOPHILS % (AUTO) 3.9 % (0-6); HEMATOCRIT 27.8 % (42.0-52.0); LYMPHOCYTES % (AUTO) 37.6 % (21-51); MEAN CORPUSCULAR HEMOGLOBIN 28.4 PG (27.0-31.0); MEAN CORPUSCULAR HGB CONC 32.3 g/dL (33.0-36.5); MEAN CORPUSCULAR VOLUME 87.7 FL (78-98); MEAN PLATELET VOLUME 8.7 FL (7.4-10.4); MONOCYTES # (AUTO) 0.6 X10'3 (0-0.9); MONOCYTES % (AUTO) 10.8 % (2-12); NEUTROPHILS # (AUTO) 2.5 X10'3 (1.8-7.7); NEUTROPHILS % (AUTO) 47.4 % (42-75); PLATELET COUNT 288 X10'3 (140-440); RED BLOOD COUNT 3.17 X10'6 (4.70-6.10); WHITE BLOOD COUNT 5.2 X10'3 (4.5-11.0)
[2024-07-17 06:31] LABS: ALANINE AMINOTRANSFERASE 22 U/L (12-78); ALBUMIN 2.4 G/DL (3.4-5.0); ALBUMIN/GLOBULIN RATIO 0.9 (1.1-1.5); ALKALINE PHOSPHATASE 81 IU/L (46-116); ANION GAP 7 (8-16); ASPARTATE AMINO TRANSFERASE 13 U/L (10-37); BILIRUBIN,TOTAL 0.3 MG/DL (0.1-1.0); BLOOD UREA NITROGEN 8 MG/DL (7-18); BUN/CREATININE RATIO 12.1 (10.0-20.0); CALCIUM 8.3 MG/DL (8.5-10.1); CHLORIDE 109 MMOL/L (99-107); CREATININE 0.66 MG/DL (0.60-1.10); GLUCOSE 74 MG/DL (70-104); LIPASE 7 U/L (16-77); MAGNESIUM 1.4 MG/DL (1.5-2.4); POTASSIUM 4.1 MMOL/L (3.5-5.1); SODIUM 144 MMOL/L (135-145); TOTAL CARBON DIOXIDE 28.2 MMOL/L (24-32); TOTAL PROTEIN 5.2 G/DL (6.4-8.2); eCRCL 110 ML/MIN; eGFR > 90 ML/MIN
[2024-07-17 08:00] VITALS: RESP 16; O2SAT 96
[2024-07-17 10:00] VITALS: BP 130/95; PULSE 90; RESP 16; TEMP 98.3; O2SAT 98
[2024-07-17 12:29] VITALS: RESP 17
--- NOTE | 2024-07-17 18:33 | DISCHARGE SUMMARY ---
Discharge Summary Providers to ~ no new complaint today, asking to be discharged home Discharge Summary Assessment Diabetes mellitus type 2 poor control Hypertension urgency Chronic pancreatitis in exacerbation Chronic kidney disease Anemia Acute kidney injury secondary to renal tubular stasis Admission Diagnosis: Abdominal pain Admission Diagnosis Comment: Diabetes mellitus type 2 poor control Hypertension urgency Chronic pancreatitis in exacerbation Chronic kidney disease Anemia Acute kidney injury secondary to renal tubular stasis Hospital Course DATE OF ADMISSION: July 14, 2024 DATE OF DISCHARGE: July 1702/2025 Discharge Diagnosis\Comment: Diabetes mellitus type 2 poor control Hypertension urgency Chronic pancreatitis in exacerbation Chronic kidney disease Anemia Acute kidney injury secondary to renal tubular stasis Operations\Procedures: Non Consultants: Non Complications: Non Condition on DC: Stable Discharge Summary: 59-year-old male patient with past medical history of diabetes mellitus, hypertension, chronic pancreatitis came to the hospital with chief complaint of abdominal pain. The patient reports that his abdominal pain started a pproximately four days ago, he describes this pain as sharp type, 9/10 in intensity, with radiation to the back, mildly improvement of pain when the patient leans forward. On associated factors the patient endorses that four days ago he drank two beers and after that his pain started, not subsiding until today which prompted him to come to the hospital. The patient was taking pain medication that surgeon sent him for pain management of hiatal hernia repair surgery on June 20, 2024. After his surgery his pain has been well controlled with his pain medication from surgical area but he describes this pain completely different and similar to a previous episode of acute pancreatitis that he experienced 10 years ago. The patient currently denies nausea, vomit ing, shortness of breath, palpitations, chest pain, intestinal or urinary symptoms. He endorses that he had one normal bowel movement this morning. After admission patient was extensively evaluated and treated, today he has no complaint, asking to be discharged home medication reconciled, Vital signs, stable ,afebrile. Pulse Oximetry reflects adequate oxygenation. General: well developed, well nourished. Awake , alert, and oriented x4, resting comfortably in the bed, in no acute distress . Skin: Warm, dry, no pallor, no rash or petechiae. HEENT: Atraumatic, normocephalic, EOMI, anicteric sclera B; pink conjunctiva; PERRLA, normal oropharynx, moist oral and nasal mucosa. Tympanic membrane , nose , throat clear. Neck: Trachea midline. Supple, full range of motion, no JVD, bruit , hepatojugular reflex , lymphadenopathy or masses, or other lesions Cardiac: Regular rhythm, regular rate no murmurs, rubs, or gallops. Normal S1 and S2, no S3 noticed. PMI is normal. Respiratory: Equal breath sounds bilaterally, no tachypnea; lungs clear to auscultation bilaterally, no wheezing ,rub or rales, or crackles. Chest wall is symmetric and without deformity. No signs of trauma. Chest wall is nontender. No signs of respiratory distress. Resonance is normal upon percussion bilaterally. Gastrointestinal: Abdomen symmetric, non-distended, soft, non-tender, normal bowel sounds x4 quadrant, normoactive, no hepatosplenomegaly , no masses , no bruit, no flank pain bilaterally. No voluntary guarding, rebo und, or rigidity. No tenderness to percussion. No pulsatile masses. Equal femoral pulses. No Nino's sign or McBurney point tenderness. Back; no CVA tenderness bilaterally, no deformities. Neck and back are without deformity as well. No tenderness noted on palpation of the spinous processes. Spinous processes are midline. Cervical, thoracic, and lumbar paraspinal muscles are not tender and are without spasm. : normal external genitalia, without lesions, swelling, masses or tenderness. Musculoskeletal: Extremities, normal range of motion, non-tender, muscle strength 5/5 x 4. Negative Homans signs bilaterally on lower extremity. Distal pulses full symmetrical, no clubbing, cyanosis , edema. Neurological: Speech is clear, alert, and oriented x 4. No motor or sensory deficit, deep tendon reflexes normal, cerebellar intact. Cranial nerves II-XII intact. Psych: Alert and or appropriate, normal affect. Vascular: Good distal pulses, which are equal x4; capillary refill less than 2 seconds. Lymphatic, no lymphadenopathy. Follow with PCP in the morning, return to emergency department if condition worsens *Problems/Diagnosis: (1) Diabetes mellitus Status: Acute Total Time Spent on D/C: > 30 Minutes Date of Service: July 17, 2024 Billing Provider: JACQUELINE BENNETT MD Common Visit Codes: 94080-CNN/OBS DISCH DAY >30min JACQUELINE BENNETT MD July 17, 2024 18:33
== END 2024-07-17 14:45 | disposition home or self-care (01) | DRG 282 ==
LOC: ER 17:26 → ED HOLD 23:47 → ORTHO 4S 07-15 02:12
PROVIDERS: ADMIT Internal Medicine; ATTEND Family Medicine
PROC: BW211ZZ Computerized Tomography (CT Scan) of Abdomen and Pelvis using Low Osmolar Contrast (ICD-10-PCS; principal; 2024-07-14)
DX: K85.90 Acute pancreatitis without necrosis or infection, unspecified (principal); N17.0 Acute kidney failure with tubular necrosis; E11.22 Type 2 diabetes mellitus with diabetic chronic kidney disease; E11.65 Type 2 diabetes mellitus with hyperglycemia; D64.9 Anemia, unspecified; G89.29 Other chronic pain; I16.0 Hypertensive urgency; K86.1 Other chronic pancreatitis; M54.9 Dorsalgia, unspecified; K21.9 Gastro-esophageal reflux disease without esophagitis; I12.9 Hypertensive chronic kidney disease with stage 1 through stage 4 chronic kidney disease, or unspecified chronic kidney disease; N18.9 Chronic kidney disease, unspecified; Z80.0 Family history of malignant neoplasm of digestive organs; Z83.3 Family history of diabetes mellitus; Z79.4 Long term (current) use of insulin; Z85.46 Personal history of malignant neoplasm of prostate; Z87.891 Personal history of nicotine dependence; Z79.899 Other long term (current) drug therapy
CPT/HCPCS: 36415; 74177; 80053; 80061; 80320; 81001; 82550; 82570; 82728; 82948; 83540; 83550; 83690; 83735; 83880; 83930; 83935; 84100; 84156; 84300; 84443; 84484; 84540; 85025; 85379; 87081; 87207; 96361; 96374; 96375; 97116; 97161; 97530; 99285; A6258; G0378; J0360; J1171; J1644; J1815; J2270; J2470; J3360; J7030; J7120; Q9963; Q9967

== ENCOUNTER 2024-09-24 10:41 | Inpatient (IN) | payer MEDICAID ==
[~2024-09-24] VITALS: Ht 170.2 cm; Wt 75.0 kg
[~2024-09-24 10:41] MED LIST changes: -OMEP40CA21 PO; +PANT40TA54 PO
--- NOTE | 2024-09-24 10:52 | Physician Documentation ---
History of Present Illness Chief Complaint: Abdominal Pain Stated Complaint: ABD PAIN Time Seen by MD: 10:48 Primary Medical Doctor: Chantelle Wilburn Md. Mode of Arrival: EMS HPI 59 yom h/o PUD p/w abdominal pain. Began 2-3 days ago and slowly worsening. Now rated as severe. Medication Reconciliation Allergies: Coded Allergies: No Known Allergies (Unverified , 02/16/09) Scheduled Dapagliflozin Propanediol (Farxiga), 1 TAB PO BID, (Reported) Ibuprofen (Ibuprofen), 1 TAB PO BID, (Reported) Lisinopril* (Lisinopril*), 1 TAB PO QAM, (Reported) Pantoprazole Sodium (Pantoprazole Sodium), 40 MG PO BID Semaglutide (Semaglutide), 1 SYR SQ Q7D, (Reported) Scheduled PRN Oxycodone Hcl/Acetaminophen 5/325 MG* (Percocet 5/325 MG*), 1 TAB PO Q4H PRN for moderate or severe pain 4-10 Past Medical History Past Medical History: Hypertension, Gastritis, GERD, Pancreatitis, Chronic Back Pain Past Surgical History: no surgical history, appendectomy Patient History: FH: HTN (hypertension) FATHER MOTHER FH: colon cancer FH: diabetes mellitus FATHER FH: prostate cancer FATHER Alcohol Use: Abuse Drug Use: none Lives with: Other Lives In: Home Occupation: employed Review of Systems All Other Systems at this time: Reviewed and Negative Constitutional: Denies: fever Cardiovascular: Denies: chest pain Gastrointestinal: Reports: abdominal pain Physical Exam Vital Signs: Heart Rate: 77, Respiratory Rate: 22, BP: 165/100, Pulse Oximetry: 100, Weight: 75.000 Oxygen Flow Rate: 0 General Appearance severe distress holding abdomen awake alert oriented lungs ctab no resp distress abdomen diffusely tender, non tympanic. skin pwd Progress Progress Note d/w Dr. Mckeon who accepts for admission Results/Orders Reviewed/noted all lab results: Yes Results/Orders Orders - ANURADHA BURGESS MD Urinalysis, Cult If Indicated (09/24/24 10:44) Cbc/Diff (09/24/24 10:44) BMP (09/24/24 10:44) Lipase (09/24/24 10:44) CMP (09/24/24 10:44) Vital Signs 7/09/24/24 09/24/24 10:43 10:48 10:48 Pulse 78 77 Resp 22 22 22 B/P (MAP) 165/100 165/100 (121) Pulse Ox 100 100 O2 Flow Rate 0 EKG/XRAY/CT/US/VASC/MRI CT : Impression Independent interpretation of CT shows no perforation. Medical Decision Making Additional info obtained from: old records Findings d/c summary 07/30 Departure Disposition: ADMITTED INPATIENT Admitted to Inpatient Unit: to hospitalist Impression: Primary Impression: Peptic ulcer disease Additional Impression Text patient presents with similar pain to prior episode of PUD. Not on any PPI. Concerning exam initially, no fever. Hgb improved from baseline. No WBC elevation. CT showing stranding around duodenum no perforation. He showed significant improvement with protonix. Given history of perforation and stranding on CT along with concerning initial exam decision to admit made. Referrals: NO PRIMARY CARE PROVIDER (PCP) Signature Scribe Signature: na Attestation: ANURADHA Jameson MD Sep 24, 2024 10:52
[2024-09-24] MEDS: morphine 4 MG/ML inj SYRINge IV ONE ×2 (11:14→14:35)
[2024-09-24] MEDS: ringers solution, lacted 1,000 ML IV ONE (11:15)
[2024-09-24 11:35] LABS: MEAN PLATELET VOLUME 8.8 FL (7.4-10.4); RED CELL DISTRIBUTION WIDTH 15.9 % (11.5-14.5)
[2024-09-24 12:03] LABS: CREATININE 1.30 MG/DL (0.60-1.10); TOTAL CARBON DIOXIDE 19.7 MMOL/L (24-32); eCRCL 56 ML/MIN; eGFR 56 ML/MIN
[2024-09-24] MEDS ORDERED: iohexol 300mg/ml 100ml inj. ONE (12:14)
--- NOTE | 2024-09-24 13:17 | RADIOLOGY REPORT ---
Exam: CT CT ABDOMEN PELVIS W/ IV CONTRAST History: abdominal pain COMPARISON: CT CT ABDOMEN PELVIS W/ ORAL CONTRAST on DOS: 07/30/24 Technique: Multidetector spiral CT of the abdomen and pelvis was performed from lung bases to pubic s ymphysis. Intravenous contrast was administered during this examination. Portal venous imaging was obtained. Axial, coronal and sagittal multiplanar reformats were performed by the technologist on a separate workstation. Radiation Dose : 1. Abdomen/Pelvis: CTDIvol 15.1 mGy, DLP 737 mGy*cm. CONTRAST: 90 mL omni 300 Findings: Lung Bases: No evidence of pleural effusions or consolidation at the lung bases. There is a 4 mm nod ule along the left pericardium (series 2, image 5) which is unchanged from prior and likely clinicall y insignificant and related to the pericardial fat. Liver: The liver is normal in size. No focal lesions. Normal hepatic vascular enhancement. Gallbladder and Biliary Tree: Unremarkable Spleen: Unremarkable Pancreas: Pancreas is atrophic with scattered calcifications. Adrenal Glands: Unremarkable Kidneys: No hydronephrosis. Bladder: Unremarkable Bowel: Small hiatal hernia. There is wall thickening and adjacent fat stranding associated with the d istal stomach and proximal duodenum. There is also more focal thickening along the greater curvature of the gastric body (series 2, image 18) which is new from prior. No evidence of free air. Small yuri l and colon are normal in caliber and distribution. The appendix is not visualized; however, no seco ndary findings of acute appendicitis identified. Ascites: Trace fluid in the dependent pelvis. Lymphadenopathy: No mesenteric, retroperitoneal or periportal lymphadenopathy. Abdominal Wall and Mesentery: Unremarkable. Vasculature: The visualized abdominal aorta is normal in size and caliber. Abdominal and pelvic vess els demonstrate normal enhancement. Pelvic Organs: Unremarkable Musculoskeletal: No evidence of acute osseous abnormalities. Small bone island in the right superior pubic ramus. Small lucent focus in the left posterior iliac bone (series 2, image 71) which is uncha nged from prior and has a narrow zone of transition, likely benign. Mild degenerative disc change at L4-L5. IMPRESSION: Wall thickening in the stomach and proximal duodenum with adjacent fat stranding. Findings are sugge stive of peptic ulcer disease. No evidence of pneumoperitoneum. Findings suggestive of chronic pancreatitis. Trace free fluid in the pelvis may be reactive. Small hiatal hernia. Radiation optimization: All CT scans at this facility use at least one of these dose optimization clayton hniques: automated exposure control mA and/or kV adjustment per patient size (includes targeted exam s where dose is matched to clinical indication) or iterative reconstruction.
[2024-09-24] MEDS ORDERED: magnesium sulf-water 4G/100mL 100 ML IV PRN (14:40)
[2024-09-24] MEDS ORDERED: magnesium sulf-water 2g/50mL 50 ML IV PRN (14:40)
[2024-09-24] MEDS ORDERED: potassium Cl 20 mEq SR tablet PO PRN (14:40)
[2024-09-24] MEDS ORDERED: HYDROcodone/acetaminophen 5mg/325mg tablet PO PRN (14:40)
[2024-09-24] MEDS ORDERED: ondansetron/PF 4mg/2ml inj IV PRN (14:40)
[2024-09-24] MEDS ORDERED: mag hydrox/Alum hydrox/simeth 30ml oral suspension PO PRN (14:40)
[2024-09-24] MEDS ORDERED: potassium Cl 40MEQ/1/2NS 520ml 520 ML IV PRN (14:40)
[2024-09-24] MEDS ORDERED: HYDROcodone/acetaminophen 10/325mg tab PO PRN (14:40)
[2024-09-24] MEDS ORDERED: magnesium hydroxide 30ml (MOM) UD suspension PO PRN (14:40)
--- NOTE | 2024-09-24 14:55 | HISTORY AND PHYSICAL-Residence ---
History & Physical Providers to CC Resident Creating Document: PATRICIO TOPETE, NELLIE ~ History of Present Illness Primary Medical Doctor: Chantelle Wilburn Md. Reason for Admit\Complaint: Abdominal pain radiating to back. History of Present Illness This is a 59-year-old male known case of hypertension, type 2 diabetes,,history of peptic ulcer disease. He presented presented to ER with chief complaint periumblical pain radiating to epigastric and lower back, started 3 days ago initially intermittent which became continous last night, patient describes the pain as pressure-like stabbing type pain. Pain is aggravated with eating and drinking patient has been taking Tylenol and 3 tablets of ibuprofen for pain. Patient have nausea but no vomiting patient denied blood in stool and black color stools. In addition to that patient was taking Protonix daily which he had been out of it one week ago. Patient denies any history of aspirin, blood thinner use. Patient also has loss of weight 28 lbs from june till now after hiatal hernia repair. In June 2024 patient noticed blood in his stool and went to his PCP who confirmed blood in stool and then came to [facility] with lower abdominal pain and and initially was suspected to be perforated peptic ulcer disease later CT shows the perforation was contained and no surgical intervention was done, and was discharged on protonix. Recently patient had hiatial hernia surgery done in June 2024. Patient says he had colonscopy 7.5 years ago which showed benign polyp, 2nd one was 4.5 years and endoscopy was also done,and last colonoscopy was done 3 years ago. Allergies: Coded Allergies: No Known Allergies (Unverified , 02/16/09) Home Medications Home Medications Active Pantoprazole Sodium 40 Mg Tablet.dr 40 Mg PO BID 30 Days Percocet 5/325 MG* (Oxycodone/Acetaminophen) 5 Mg/325 Mg Tablet 1 Tab PO Q4H PRN 5 Days Reported Semaglutide 1 Mg/0.2 Ml Syringe 1 Syr SQ Q7D PER PT, LAST DOSE 06/07 Farxiga (Dapagliflozin Propanediol) 10 Mg Tablet 1 Tab PO BID Ibuprofen 800 Mg Tablet 1 Tab PO BID Lisinopril* (Lisinopril) 40 Mg Tablet 1 Tab PO QAM Past Medical History Past Medical History Peptic ulcer disease Chronic pancreatitis Hypertension Type 2 diabetes mellitus GERD CARPAL TUNNEL SYNDROME Past Surgical History Surgical History Comment Hiatal hernia laproscopic surgery Appendectomy thumb surgery Family History Family History: FH: HTN (hypertension) FATHER MOTHER FH: colon cancer FH: diabetes mellitus FATHER FH: prostate cancer FATHER Past Social History Social History Comment Patient quit smoking 25 years Patient quit alcohol 18 years No illicit drug use history Patient lives in home with his . Smoking: Quit greater than 1 year Alcohol Use: None Drug Use: None Lives with: Other Lives In: Home Occupation: employed ROS All Other Systems: Reviewed and Negative Constitutional: Denies: no symptoms reported, see HPI, chills, diaphoresis, fever, malaise, weakness, other Eyes: Denies: no symptoms reported, see HPI, pain, discharge, blurred vision, double vision, itching, photophobia, redness, tearing, other Respiratory: Denies: no symptoms reported, see HPI, cough, orthopnea, shortness of breath, SOB with exertion, SOB at rest, stridor, wheezing, hemoptysis, pain with breathing, other Cardiovascular: Denies: no symptoms reported, see HPI, chest pain, left arm pain, diaphoresis, lightheadedness, syncope, edema, palpitations, irregular heart rate, other Gastrointestinal: Reports: abdominal pain; Denies: no symptoms reported, see HPI, abdomen distended, nausea, vomiting, diarrhea, constipated, melena, hematemesis, hematochezia, rectal bleeding, rectal pain, dysphagia, poor appetite, poor fluid intake, other Genitourinary: Denies: no symptoms reported, see HPI, burning, discharge, dysuria, frequency, flank pain, hematuria, incontinence, pain, decreased urine output, urgency, other Male Genitalia: Denies: no symptoms reported, see HPI, penile discharge, penile sore, testicular pain, testicular swelling, other Neurological: Denies: no symptoms reported, see HPI, speech problem, headache, dizziness, fainting, tingling, left sided numbness, right sided numbness, left sided weakness, right sided weakness, problems walking, unable to move lower ext, unable to move upper ext, petit mal seizures, tonic-clonic seizures, cognitive dysfunction, other Musculoskeletal: Reports: back pain; Denies: no symptoms reported, see HPI, pain, swelling, gout, joint pain, joint swelling, muscle pain, muscle swelling, muscle stiffness, neck pain, other Psychiatric: Denies: no symptoms reported, see HPI, depression, anxiety, sleeplessness, hopeless, suicidal, hallucinations, other Exam Vitals: Vital Signs Date Time Temp Pulse Resp B/P (MAP) Pulse Ox O2 Delivery O2 Flow Rate FiO2 09/24/24 14:35 18 09/24/24 10:48 77 165/100 (121) 100 0 General: General: Awake and Alert, no acute distress. HEENT: Conjunctiva pink, Sclera clear, Mucus Membranes moist. Neck: Supple without masses and tenderness. Resp: Unlabored. Lungs clear to auscultation bilaterally. Heart: Regular Rate and rhythm, normal S1 and S2 without murmur, rub or gallop. Abdomen: It is soft, tender in the periumblical area, voluntary guarding present, no rigidity,bowel sounds present. Extremities: No cyanosis,clubbing or edema. Skin: Warm and Dry. 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 Diagnostic Data Last Recorded Lab Results: 09/24/24 1049 09/24/24 1049 Advance Care Planning Advanced Care plannin - 30 Minutes (I spent 17 minute in discussing various rescutitative measures patients choose to be full code.) Additional Plan This is a 59-year-old male known case of hypertension, type 2 diabetes,,history of peptic ulcer disease. He presented presented to ER with chief complaint periumblical pain radiating to epigastric and lower back, started 3 days ago initially intermittent which became continous last night, patient describes the pain as pressure-like stabbing type pain. Pain is aggravated with eating and drinking patient has been taking Tylenol and 3 tablets of ibuprofen for pain. Patient does nausea but no vomiting patient denied blood in stool and black color stools. Acute on Chronic Peptic ulcer disease History of hiatial hernia repair in june 2024. Chronic pancreatitis Ct abodmen and pelvis findings of peptic ulcer disease and chronic pancreatitis,no evidence of pneumoperitoneum. Lipase negative Recevied pantroprazol 80 mg in ER. Started on Protonix 40 mg IV BID daily. Received 1 Liter of LR bolus Start IV fluids N/S 100ml/hr. started on full liquid diet, advance as tolerated. Pain management -morphine,norco pr. Hypertension Lisinopril 40 mg. Will continue after med rencon is done. Diabetes Mellitus type 2 Insulin medium dose protocol Ordered HBa1c History of Chronic back pain On percocet. Code Status: full code Dvt prophylaxis: SCD GI prophylaxis: pantoprazole. Diet: Full liquid diet lines/tubes: peripheral iv line status: guarded. Patient is seen and examined with resident at bedside agree with the above Date of Service: Sep 24, 2024 Billing Provider: CLARA CARDOZA MD Common Visit Codes: [id number] INP/OBS CARE (HIGH) PATRICIO TOPETE, RES Sep 24, 2024 14:55 CLARA CARDOZA MD Sep 26, 2024 18:38
[2024-09-24] MEDS: normal saline 1000ml 1,000 ML IV SCH (15:21)
[2024-09-24] MEDS ORDERED: glucagon, human recombinant 1mg kit SUBCUT PRN (15:50)
[2024-09-24] MEDS ORDERED: DEXTROSE 15 GM of carb/4 tabs (each vial/BOTTLE has 4 tablets) PO PRN ×2 (15:50)
[2024-09-24] MEDS ORDERED: dextrose 50%-water 50ml dispensing syringe IV PRN ×2 (15:50)
[2024-09-24 16:18] LABS: APTT 28 SECONDS (22-32); INR 1.0 INR
[2024-09-24 16:32] LABS: LEUKOCYTE ESTERASE ,URINE NEGATIVE (Neg); NITRITES, URINE NEGATIVE (Neg); OCCULT BLOOD,URINE NEGATIVE (Neg)
[2024-09-24 16:35] LABS: UA COLLECTION TYPE VOIDED
[2024-09-24 16:36] VITALS: BP 140/90; PULSE 84; RESP 16; TEMP 98.8; O2SAT 100
[2024-09-24 16:38] LABS: SQUAMOUS EPITHELIAL CELL,UR NONE SEEN /LPF (FEW)
[2024-09-24] MEDS: INSULIN LISPRO 100 UNIT/ML INSULN.PEN MULTI-DOSE SQ SCH (17:00)
[2024-09-24] MEDS ORDERED: PANT-47 PO (17:22)
[2024-09-24] MEDS ORDERED: PER5325T PO (17:23)
[2024-09-24 17:25] VITALS: RESP 16; O2SAT 100
[2024-09-24 18:00] VITALS: BP 140/90; PULSE 84; RESP 17; TEMP 98.8; O2SAT 100
[2024-09-24] MEDS: K and/or MAG REPLACEMENT MC SCH (19:20)
[2024-09-24] MEDS: docusate sod 100mg capsule PO SCH (19:43)
[2024-09-24] MEDS: oxyCODONE/APAP 5-325mg tablet PO PRN (19:43)
[2024-09-24 20:00] VITALS: RESP 17; O2SAT 100
[2024-09-24 22:00] VITALS: BP 159/93; PULSE 92; RESP 14; TEMP 98.4; O2SAT 99
[2024-09-24] MEDS: insulin glargine (Lantus) pen - multi-dose SQ SCH (22:01)
[2024-09-25 05:57] LABS: MEAN PLATELET VOLUME 8.6 FL (7.4-10.4); RED CELL DISTRIBUTION WIDTH 15.8 % (11.5-14.5)
[2024-09-25 06:00] VITALS: BP 109/74; PULSE 65; RESP 16; TEMP 96.9; O2SAT 100
[2024-09-25 06:12] LABS: CREATININE 0.85 MG/DL (0.60-1.10); TOTAL CARBON DIOXIDE 20.9 MMOL/L (24-32); eCRCL 85 ML/MIN; eGFR > 90 ML/MIN
[2024-09-25 06:44] LABS: % IRON SATURATION 9 % (11-46)
[2024-09-25 07:03] VITALS: BP 121/89; PULSE 69
[2024-09-25 11:17] LABS: MEAN PLATELET VOLUME 9.2 FL (7.4-10.4); RED CELL DISTRIBUTION WIDTH 16.2 % (11.5-14.5)
[2024-09-25 15:10] VITALS: BP 131/95; PULSE 73; RESP 12; TEMP 97.9; O2SAT 100
[2024-09-25] MEDS ORDERED: DAPA5TAB6 PO (15:55)
[2024-09-25 18:00] VITALS: BP 92/56; PULSE 95; RESP 18; TEMP 97.8; O2SAT 97
--- NOTE | 2024-09-25 18:04 | PROGRESS NOTE- Residence ---
Progress Note - Resident Providers to CC Resident Creating Document: ELINA FOSTER RES ~ Antibiotic Timeout Antibiotic Ordered?: No Subjective Seen and examined the patient at bedside. Reported significant improvement in the abdominal pain and improved from 12/15 to 05/15. He denied hematemesis, melena, bleeding per rectum. No abdominal distention. Objective Vital Signs Date Time Temp Pulse Resp B/P (MAP) Pulse Ox O2 Delivery O2 Flow Rate FiO2 09/25/24 15:10 97.9 73 12 131/95 (107) 100 Room Air 09/25/24 08:00 0.0 Result Diagram: 09/25/24 1021 09/25/24 0451 General: Awake and Alert, no acute distress. HEENT: Conjunctiva pink, Sclera clear, Mucus Membranes moist. Neck: Supple without masses and tenderness. Resp: Unlabored. Lungs clear to auscultation bilaterally. Cardiovascular system: Regular Rate and rhythm, normal S1 and S2 without murmur, rub or gallop. Gastrointestinal: It is soft, tender in the epigastric and periumbilical region. no rigidity, no guarding. bowel sounds present. Extremities: No cyanosis,clubbing or edema. Skin: Warm and Dry. 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 Coagulation Studies Laboratory Tests Test 09/24/24 15:19 Prothrombin Time 10.2 SECONDS (9.0-12.0) INR International Normalized Ratio 1.0 INR Activated Partial Thromboplast Time 28 SECONDS (22-32) Coagulation Comments Advance Care Planning Advanced Care plannin - 30 Minutes Assessment Assessment This is a 59-year-old male known case of hypertension, type 2 diabetes,,history of peptic ulcer disease. He presented presented to ER with chief complaint periumblical pain radiating to epigastric and lower back, started 3 days ago initially intermittent which became continous last night, patient describes the pain as pressure-like stabbing type pain. Pain is aggravated with eating and drinking patient has been taking Tylenol and 3 tablets of ibuprofen for pain. Patient does nausea but no vomiting patient denied blood in stool and black color stools. Plan Plan Intractable abdominal pain secondary to peptic ulcer disease Ct abodmen and pelvis findings of peptic ulcer disease and chronic pancreatitis,no evidence of pneumoperitoneum. Lipase negative Recevied pantroprazol 80 mg in ER. Started on Protonix 40 mg IV BID daily. Received 1 Liter of LR bolus Start IV fluids N/S 100ml/hr. started on full liquid diet, advance as tolerated. Pain management -morphine,norco pr. On 09/25/2024: Abdominal pain is responding well with IV pantoprazole 40 mg b.i.d. and Tolerated liquid diet. Change the pain medication to tramadol 50 mg q.4h p.r.n. as the patient does not want the [place]. No signs of pneumoperitoneum. Follow up with vp integrity in outpatient. Hypertension Lisinopril 40 mg. Will continue after med rencon is done. On 09/25/2024: Blood pressures are pretty stable with lisinopril 40 mg and we will continue to monitor blood pressure with a target of SBP less than 130 Diabetes Mellitus type 2 Insulin medium dose protocol Ordered HBa1c On 09/25/2024: A1c is 9.7 and blood sugar is ranging between 122-177 with Lantus insulin of 7 units and supplemental Humalog medium dose protocol. We will continue to monitor blood glucose with a target of 140-180 History of Chronic back pain On percocet. On 09/25/2024: Percocet seems to be not helping his pain and he does not want to take the Percocet. Change it to tramadol Code Status: full code Dvt prophylaxis: SCD GI prophylaxis: pantoprazole. Diet: Full liquid diet lines/tubes: peripheral iv line PT: Home independent Prognosis : guarded. Disposition: Likely home discharge [facility] a.[facility] IM resident, PGY 2 Seen and examined with resident at bedside Date of Service: Sep 25, 2024 Billing Provider: CLARA CARDOZA MD Common Visit Codes: [id number] INP/OBS CARE(HIGH) KRISTINELINA, RES Sep 25, 2024 18:04 CLARA CARDOZA MD Sep 26, 2024 18:38
[2024-09-25 19:38] LABS: MEAN PLATELET VOLUME 9.1 FL (7.4-10.4); RED CELL DISTRIBUTION WIDTH 16.1 % (11.5-14.5)
[2024-09-25 22:00] VITALS: BP 131/107; PULSE 76; RESP 18; TEMP 97.3; O2SAT 100
[2024-09-25 22:30] VITALS: BP_SYST 162; BP_SYST 165; BP_DIAS 109; BP_DIAS 111; PULSE 77; PULSE 81
[2024-09-26 01:00] VITALS: BP 142/97; PULSE 69
[2024-09-26 04:17] LABS: MEAN PLATELET VOLUME 7.8 FL (7.4-10.4); RED CELL DISTRIBUTION WIDTH 15.9 % (11.5-14.5)
[2024-09-26 04:33] LABS: CREATININE 0.58 MG/DL (0.60-1.10); TOTAL CARBON DIOXIDE 23.0 MMOL/L (24-32); eCRCL 125 ML/MIN; eGFR > 90 ML/MIN
[2024-09-26 06:00] VITALS: BP 117/82; PULSE 63; RESP 16; TEMP 97.8; O2SAT 96
[2024-09-26] MEDS: magnesium Cl slow-release 64mg tablet PO PRN (07:45)
[2024-09-26] MEDS: potassium Cl 20 mEq SR tablet PO PRN (07:45)
[2024-09-26 08:00] VITALS: RESP 16; O2SAT 100
[2024-09-26 08:17] LABS: CHOL/HDL RATIO 3.1 (0.00-4.99); LDL CHOLESTEROL 52 MG/DL (50-100)
[2024-09-26 10:00] VITALS: BP 140/88; PULSE 73; RESP 16; TEMP 98.2; O2SAT 100
[2024-09-26 11:16] LABS: MEAN PLATELET VOLUME 8.3 FL (7.4-10.4); RED CELL DISTRIBUTION WIDTH 15.9 % (11.5-14.5)
[2024-09-26] MEDS ORDERED: SUCR1TAB PO (13:03)
[2024-09-26] MEDS ORDERED: PANT-47 PO (13:03)
[2024-09-26 13:23] VITALS: RESP 18
--- NOTE | 2024-09-26 15:58 | DISCHARGE SUMMARY-Residence ---
Discharge Summary Providers to CC Resident Creating Document: YOSELYNCARLYPATRICIO, NELLIE ~ Discharge Summary Admission Diagnosis: Peptic ulcer disease Hospital Course DATE OF ADMISSION: 09/24/2024 DATE OF DISCHARGE:09/26/2024 Labs at the time of discharge Wbc: 5.8 Rbc: 3.22 Hgb: 9.1 Platelet count: 458 Creatinine: 0.[address] abdomen and pelvis Wall thickening in the stomach and proximal duodenum with adjacent fat stranding. Findings are suggestive of peptic ulcer disease. No evidence of pneumoperitoneum. Findings suggestive of chronic pancreatitis. Trace free fluid in the pelvis may be reactive. Small hiatal hernia. Discharge Diagnosis\Comment: Hypertension Peptic ulcer disease Chronic pancreatitis back pain Operations\Procedures: no Consultants: no Complications: no Condition on DC: Stable New Medications: Sucralfate (Sucralfate) 1 Gram Tablet 1 TAB PO Q8H for 30 Days, #90 TAB 0 Refills Continued Medications: Dapagliflozin Propanediol (Dapagliflozin) 5 Mg Tablet 1 TAB PO QAM Lisinopril* (Lisinopril*) 40 Mg Tablet 1 TAB PO QAM Oxycodone Hcl/Acetaminophen 5/325 MG* (Percocet 5/325 MG*) 5 Mg/325 Mg Tablet 1 TAB PO Q4H PRN for moderate or severe pain 4-10, #20 TAB Pantoprazole Sodium (PROTONIX tablet) 40 Mg Tablet.dr 1 TAB PO BID for 30 Days, #60 TAB 0 Refills (This prescription has been renewed) Semaglutide (Semaglutide) 1 Mg/0.2 Ml Syringe 1 SYR SQ Q7D PER PT, LAST DOSE 06/07 Discontinued Medications: Ibuprofen (Ibuprofen) 800 Mg Tablet 1 TAB PO BID for PAIN, TAB 0 Refills Discharge Summary: History of Present Illness This is a 59-year-old male known case of hypertension, type 2 diabetes,,history of peptic ulcer disease. He presented presented to ER with chief complaint periumblical pain radiating to epigastric and lower back, started 3 days ago initially intermittent which became continous last night, patient describes the pain as pressure-like stabbing type pain. Pain is aggravated with eating and drinking patient has been taking Tylenol and 3 tablets of ibuprofen for pain. Patient have nausea but no vomiting patient denied blood in stool and black color stools. In addition to that patient was taking Protonix daily which he had been out of it one week ago. Patient denies any history of aspirin, blood thinner use. Patient also has loss of weight 28 lbs from june till now after hiatal hernia repair. Hospital Course This patient presented to ER with chief from pain of periumbilical pain and for that CT scan of abdomen and pelvis was performed in which findings were suggestive of peptic ulcer disease and chronic pancreatitis. and lipase were negative.Patient received pantoprazole 80 mg in the ER and then was put on 40 mg IV pantoprazole and IV fluids, and also received morphine sulfate for abdominal pain. In addition to that patient's blood pressure was also treated with the lisinopril 40 mg b.i.d and amlodipine 5 mg. Patient was also kept on insulin medium dose protocol for diabetes mellitus type 2. Apart from that patient has history of back pain which was treated with tramadol and percocet. Physical Exam on Discharge General: Awake and Alert, no acute distress. HEENT: Conjunctiva pink, Sclera clear, Mucus Membranes moist. Neck: Supple without masses and tenderness. Resp: Unlabored. Lungs clear to auscultation bilaterally. Heart: Regular Rate and rhythm, normal S1 and S2 without murmur, rub or gallop. Abdomen: Soft,non tender,bowel sounds present.No guarding or rigidty. Extremities: No cyanosis,clubbing or edema. Skin: Warm and Dry. 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 Vital Signs at the discharge Date Time Temp Pulse Resp B/P (MAP) Pulse Ox O2 Delivery O2 Flow Rate FiO2 09/26/24 13:23 18 09/26/24 10:00 98.2 73 140/88 (105) 100 Room Air 09/25/24 20:00 0.0 Discharge Instructions Follow up with Dr. Oh and schedule appointment with him for upper GI endoscopy. Take your medications as prescribed. Continue home medications. Follow up with your PCP.Repeat CBC,BMP Call 911 if you have bloody vomitting, blood in stools, chest pain or shortness of breath *Problems/Diagnosis: (1) Peptic ulcer disease Status: Resolved (2) Abdominal pain Status: Resolved Total Time Spent on D/C: Up to 30 Minutes Date of Service: Sep 26, 2024 Billing Provider: CLARA CARDOZA MD Common Visit Codes: [id number] DISCH DAY >30min PATRICIO TOPETE, RES Sep 26, 2024 15:57 CLARA CARDOZA MD Sep 26, 2024 18:38
[2024-09-26] MEDS ORDERED: pantoprazole 40mg Tablet.DR PO SCH (20:00)
== END 2024-09-26 14:35 | disposition home or self-care (01) | DRG 241 ==
LOC: ER 10:42 → ED HOLD 13:40 → ORTHO 4S 16:34
PROVIDERS: ADMIT Internal Medicine; ATTEND Internal Medicine
PROC: BW211ZZ Computerized Tomography (CT Scan) of Abdomen and Pelvis using Low Osmolar Contrast (ICD-10-PCS; principal; 2024-09-24)
DX: K27.9 Peptic ulcer, site unspecified, unspecified as acute or chronic, without hemorrhage or perforation (principal); E11.9 Type 2 diabetes mellitus without complications; I10 Essential (primary) hypertension; K86.1 Other chronic pancreatitis; G89.29 Other chronic pain; K21.9 Gastro-esophageal reflux disease without esophagitis; Z80.0 Family history of malignant neoplasm of digestive organs; Z83.3 Family history of diabetes mellitus; Z85.46 Personal history of malignant neoplasm of prostate; Z87.11 Personal history of peptic ulcer disease
CPT/HCPCS: 36415; 74177; 80053; 80061; 81001; 82728; 82948; 83036; 83540; 83550; 83605; 83690; 83735; 83880; 85025; 85027; 85610; 85730; 87081; 96361; 96374; 96375; 97116; 97161; 97530; 99285; G0378; J1815; J2270; J2470; J7030; J7120; Q9967